=== PATIENT | male | born 1980 | race Two or more races ===

== ENCOUNTER 2018-04-16 16:26 | Inpatient (IN) | payer MEDICAID ==
[~2018-04-16] VITALS: Ht 175.3 cm; Wt 78.5 kg
[2018-04-16] MEDS ORDERED: Tetanus/Diptheria/Pertussis Vaccine 0.5ml Syr IM ONE (17:00)
[2018-04-16] MEDS ORDERED: Morphine Sulfate 4mg/ml Inj (IV USE ONLY) IVP ONE (17:00)
[2018-04-16] MEDS ORDERED: Cefepime HCl 1 GM in NS 55 ML IV SCH (17:00)
[2018-04-16] MEDS ORDERED: Bacitracin Oint UD TOPIC ONE (17:00)
[2018-04-16] MEDS ORDERED: Ketorolac 30mg Inj IV ONE (17:00)
[2018-04-16] MEDS ORDERED: Vancomycin 1 GM in NS 275 ML IV ONE (17:00)
[2018-04-16 18:14] LABS: BASOPHILS % (AUTO) 0.7 % (0.0-2.0); EOSINOPHILS % (AUTO) 0.4 % (0.0-3.0); HEMATOCRIT 44.3 % (42.0-52.0); HEMOGLOBIN 15.3 G/DL (14.2-18.0); MEAN CORPUSCULAR VOLUME 96 FL (80-99); MONOCYTES % (AUTO) 7.2 % (1.0-10.0); NEUTROPHILS % (AUTO) 79.7 % (45.0-75.0); PLATELET COUNT 212 K/UL (150-450); RED BLOOD COUNT 4.62 M/UL (4.70-6.10); RED CELL DISTRIBUTION WIDTH 10.3 % (11.6-14.8); WHITE BLOOD COUNT 11.8 K/UL (4.8-10.8)
[2018-04-16 18:25] LABS: ANION GAP 11 mmol/L (5-15); BLOOD UREA NITROGEN 13 mg/dL (7-18); CARBON DIOXIDE 22 MMOL/L (21-32); CHLORIDE 103 MMOL/L (98-107); CREATININE 0.9 MG/DL (0.55-1.30); POTASSIUM 3.6 MMOL/L (3.5-5.1); SODIUM 136 MMOL/L (136-145)
[2018-04-16 18:35] LABS: ALANINE AMINOTRANSFERASE 26 U/L (12-78); ALBUMIN 3.5 G/DL (3.4-5.0); ALBUMIN/GLOBULIN RATIO 0.9 (1.0-2.7); ALKALINE PHOSPHATASE 57 U/L (46-116); ASPARTATE AMINO TRANSFERASE 19 U/L (15-37); BILIRUBIN,TOTAL 1.1 MG/DL (0.2-1.0); CREATINE KINASE 112 U/L (26-308)
[2018-04-16 18:42] LABS: BILIRUBIN,DIRECT 0.2 MG/DL (0.0-0.3)
--- NOTE | 2018-04-16 19:03 | Emergency Room Report ---
History of Present Illness General Chief Complaint: Lower Extremity Injury Source: Patient Present Illness HPI Patient presents with 3-4 days of increasing pain in his right knee. 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 There is swelling there and severe pain at this time. He rates the pain 10/10 burning and stinging. He has difficulty bending his knee. He was seen 2 days ago and told that there was no problem. They told him to take Tylenol. He was seen by his doctor today and told that he had a severe infection and they might lose his leg and came to the hospital. His tetanus is greater than 10 years. He denies any calf swelling. There is no trauma aside from kneeling on the knee. No NVD, dysuria, chest pain, cough, neck pain, headache. 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 Reviewed Nursing Documentation: PMH: Agreed; PSxH: Agreed Nursing Documentation-PMH Past Medical History: No Stated History Review of Systems All Other Systems: negative except mentioned in HPI Physical Exam Vital Signs Date Time Temp Pulse Resp B/P (MAP) Pulse Ox O2 Delivery O2 Flow Rate FiO2 04/16/18 16:38 102.9 106 18 124/81 97 102.9 Sp02 EP Interpretation: reviewed, normal General Appearance: well appearing, no apparent distress, GCS 15, non-toxic Head: normocephalic Eyes: bilateral eye normal inspection, bilateral eye PERRL ENT: moist mucus membranes Neck: supple Respiratory: lungs clear, normal breath sounds Cardiovascular #1: regular rate, rhythm Cardiovascular #2: 2+ radial (R), 2+ dorsalis pedis (R) Gastrointestinal: normal inspection, normal bowel sounds, non tender, no mass, non-distended Musculoskeletal: back normal, no calf tenderness, decreased range of motion - R knee, Javier's Sign negative, inflammation, swelling, other - see skin, tender Neurologic: alert, oriented x3, grossly normal Psychiatric: mood/affect normal Skin: normal inspection, warm/dry, other - erythema of R knee extending below and laterally anteriorly Medical Decision Making Diagnostic Impression: Primary Impression: Cellulitis of right knee Additional Impression: Prepatellar bursitis Qualified Codes: M70.41 - Prepatellar bursitis, right knee ER Course Patient with knee pain, erythema. DDx: septic knee, prepatellar bursitis, cellulitis amongst others. Evaluation with BC, labs, xrays. Treatment with IV antibiotics and analgesia. Based on exam, suspicion for septic joint less. No evidence of DVT. Tetanus indicated. Labs with leukocytosis, normal ESR, elevated CRP. Patient with significant infection R knee. Needs admission for IV antibiotics. Pain improved as is ROM, however still limited. Laboratory Tests Test 04/16/18 17:45 04/16/18 20:45 White Blood Count 11.8 K/UL (4.8-10.8) H Red Blood Count 4.62 M/UL (4.70-6.10) L Hemoglobin 15.3 G/DL (14.2-18.0) Hematocrit 44.3 % (42.0-52.0) Mean Corpuscular Volume 96 FL (80-99) Mean Corpuscular Hemoglobin 33.1 PG (27.0-31.0) H Mean Corpuscular Hemoglobin Concent 34.6 G/DL (32.0-36.0) Red Cell Distribution Width 10.3 % (11.6-14.8) L Platelet Count 212 K/UL (150-450) Mean Platelet Volume 8.4 FL (6.5-10.1) Neutrophils (%) (Auto) 79.7 % (45.0-75.0) H Lymphocytes (%) (Auto) 12.0 % (20.0-45.0) L Monocytes (%) (Auto) 7.2 % (1.0-10.0) Eosinophils (%) (Auto) 0.4 % (0.0-3.0) Basophils (%) (Auto) 0.7 % (0.0-2.0) Erythrocyte Sedimentation Rate 14 MM/HR (0-15) Prothrombin Time 10.9 SEC (9.30-11.50) Prothrombin Time INR 1.0 (0.9-1.1) PTT 28 SEC (23-33) Sodium Level 136 MMOL/L (136-145) Potassium Level 3.6 MMOL/L (3.5-5.1) Chloride Level 103 MMOL/L (98-107) Carbon Dioxide Level 22 MMOL/L (21-32) Anion Gap 11 mmol/L (5-15) Blood Urea Nitrogen 13 mg/dL (7-18) Creatinine 0.9 MG/DL (0.55-1.30) Estimate Glomerular Filtration Rate > 60 mL/min (>60) Glucose Level 103 MG/DL (74-106) Lactic Acid Level 1.20 mmol/L (0.4-2.0) Uric Acid 3.5 MG/DL (2.6-7.2) Calcium Level 9.0 MG/DL (8.5-10.1) Total Bilirubin 1.1 MG/DL (0.2-1.0) H Direct Bilirubin 0.2 MG/DL (0.0-0.3) Aspartate Amino Transferase (AST) 19 U/L (15-37) Alanine Aminotransferase (ALT) 26 U/L (12-78) Alkaline Phosphatase 57 U/L (46-116) Total Creatine Kinase 112 U/L (26-308) Troponin I 0.000 ng/mL (0.000-0.056) C-Reactive Protein, Quantitative 6.4 mg/dL (0.00-0.90) H Total Protein 7.5 G/DL (6.4-8.2) Albumin 3.5 G/DL (3.4-5.0) Globulin 4.0 g/dL Albumin/Globulin Ratio 0.9 (1.0-2.7) L Anti-Nuclear Antibody Screen Pending Urine Color Yellow Urine Appearance Clear Urine pH 8 (4.5-8.0) Urine Specific [place] 1.010 (1.005-1.035) Urine Protein Negative (NEGATIVE) Urine Glucose (UA) Negative (NEGATIVE) Urine Ketones 1+ (NEGATIVE) H Urine Occult Blood Negative (NEGATIVE) Urine Nitrite Negative (NEGATIVE) Urine Bilirubin Negative (NEGATIVE) Urine Urobilinogen 1 MG/DL (0.0-1.0) H Urine Leukocyte Esterase Negative (NEGATIVE) Chest X-Ray Diagnostic Results Chest X-Ray Diagnostic Results : Chest X-Ray Ordered: Yes # of Views/Limited/Complete: 1 View Indication: Other EP Interpretation: Yes Interpretation: no consolidation, no effusion, no pneumothorax Impression: No acute disease Electronically Signed by: Reinier Downs MD Other X-Ray Diagnostic Results Other X-Ray Diagnostic Results : X-Ray ordered: R knee # of Views/Limited Vs Complete: 3 View Indication: Other EP Interpretation: Yes Interpretation: no dislocation, no soft tissue swelling, no fractures, other - no effusion Impression: No acute disease Electronically Signed by: Reinier Downs MD Last Vital Signs Date Time Temp Pulse Resp B/P (MAP) Pulse Ox O2 Delivery O2 Flow Rate FiO2 04/16/18 22:02 99.1 04/16/18 22:00 Room Air 04/16/18 19:44 88 16 98/49 95 Status: improved Disposition: ADMITTED INPATIENT Condition: Serious Scripts No Active Prescriptions or Reported Meds Referrals: [facility],REFERRING (PCP) Reinier Downs M.D. Apr 16, 2018 19:03
[2018-04-16 19:44] VITALS: BP 98/49
[2018-04-16] MEDS ORDERED: Morphine Sulfate 4mg/ml Inj (IV USE ONLY) IVP STA (20:00)
[2018-04-16 20:30] VITALS: BP 110/54
[2018-04-16] MEDS: Enoxaparin 40mg Inj SUBQ SCH (20:45)
[2018-04-16 21:15] LABS: APPEARANCE,URINE CLEAR; BILIRUBIN, URINE NEGATIVE (NEGATIVE); GLUCOSE, URINE (UA) NEGATIVE (NEGATIVE); KETONES,URINE 1+ (NEGATIVE); LEUKOCYTE ESTERASE ,URINE NEGATIVE (NEGATIVE); NITRITE,URINE NEGATIVE (NEGATIVE); PH,URINE 8 (4.5-8.0); PROTEIN,URINE NEGATIVE (NEGATIVE); UROBILINOGEN,URINE 1 MG/DL (0.0-1.0)
[2018-04-16 21:30] VITALS: BP 108/60
[2018-04-16 21:33] LABS: COLOR,URINE YELLOW
--- NOTE | 2018-04-16 22:55 | Infectious Diseases Prog Note ---
Assessment/Plan Problems: (1) Right knee pain Assessment & Plan: due to recent exertion and trauma , with soft tissue swelling, rule out septic knee joint, will order aspiration of the joint fluids and send for chemistry and culture, start vancomycin and cefepime empirically pending culture results. will screen for gout, RA, and SLE (2) Prepatellar bursitis Assessment & Plan: will start vancomycin and cefepime empirically , continue pain management (3) Cellulitis of right knee Assessment & Plan: continue antibiotics , avoid knee trauma and exertion Subjective Allergies: Coded Allergies: No Known Allergies (Unverified , 04/16/18) Objective Vital Signs Last 24 Hour Vital Signs Date Time Temp Pulse Resp B/P (MAP) Pulse Ox O2 Delivery O2 Flow Rate FiO2 04/16/18 21:04 99.1 04/16/18 21:03 99.1 04/16/18 19:44 103.3 88 16 98/49 95 Room Air 103.3 04/16/18 18:25 102.9 04/16/18 18:24 102.9 04/16/18 16:38 102.9 106 18 124/81 97 102.9 Height (Feet): 5 Height (Inches): 9.00 Weight (Pounds): 173 Laboratory Tests Test 04/16/18 17:45 04/16/18 20:45 White Blood Count 11.8 K/UL (4.8-10.8) H Red Blood Count 4.62 M/UL (4.70-6.10) L Hemoglobin 15.3 G/DL (14.2-18.0) Hematocrit 44.3 % (42.0-52.0) Mean Corpuscular Volume 96 FL (80-99) Mean Corpuscular Hemoglobin 33.1 PG (27.0-31.0) H Mean Corpuscular Hemoglobin Concent 34.6 G/DL (32.0-36.0) Red Cell Distribution Width 10.3 % (11.6-14.8) L Platelet Count 212 K/UL (150-450) Mean Platelet Volume 8.4 FL (6.5-10.1) Neutrophils (%) (Auto) 79.7 % (45.0-75.0) H Lymphocytes (%) (Auto) 12.0 % (20.0-45.0) L Monocytes (%) (Auto) 7.2 % (1.0-10.0) Eosinophils (%) (Auto) 0.4 % (0.0-3.0) Basophils (%) (Auto) 0.7 % (0.0-2.0) Erythrocyte Sedimentation Rate 14 MM/HR (0-15) Prothrombin Time 10.9 SEC (9.30-11.50) Prothromb Time International Ratio 1.0 (0.9-1.1) Activated Partial Thromboplast Time 28 SEC (23-33) Sodium Level 136 MMOL/L (136-145) Potassium Level 3.6 MMOL/L (3.5-5.1) Chloride Level 103 MMOL/L (98-107) Carbon Dioxide Level 22 MMOL/L (21-32) Anion Gap 11 mmol/L (5-15) Blood Urea Nitrogen 13 mg/dL (7-18) Creatinine 0.9 MG/DL (0.55-1.30) Estimat Glomerular Filtration Rate > 60 mL/min (>60) Glucose Level 103 MG/DL (74-106) Lactic Acid Level 1.20 mmol/L (0.4-2.0) Uric Acid 3.5 MG/DL (2.6-7.2) Calcium Level 9.0 MG/DL (8.5-10.1) Total Bilirubin 1.1 MG/DL (0.2-1.0) H Direct Bilirubin 0.2 MG/DL (0.0-0.3) Aspartate Amino Transf (AST/SGOT) 19 U/L (15-37) Alanine Aminotransferase (ALT/SGPT) 26 U/L (12-78) Alkaline Phosphatase 57 U/L (46-116) Total Creatine Kinase 112 U/L (26-308) Troponin I 0.000 ng/mL (0.000-0.056) C-Reactive Protein, Quantitative 6.4 mg/dL (0.00-0.90) H Total Protein 7.5 G/DL (6.4-8.2) Albumin 3.5 G/DL (3.4-5.0) Globulin 4.0 g/dL Albumin/Globulin Ratio 0.9 (1.0-2.7) L Anti-Nuclear Antibody Screen Pending Urine Color Yellow Urine Appearance Clear Urine pH 8 (4.5-8.0) Urine Specific [place] 1.010 (1.005-1.035) Urine Protein Negative (NEGATIVE) Urine Glucose (UA) Negative (NEGATIVE) Urine Ketones 1+ (NEGATIVE) H Urine Occult Blood Negative (NEGATIVE) Urine Nitrite Negative (NEGATIVE) Urine Bilirubin Negative (NEGATIVE) Urine Urobilinogen 1 MG/DL (0.0-1.0) H Urine Leukocyte Esterase Negative (NEGATIVE) Current Medications Medications (Trade) Dose Ordered Sig/Tiffany Route PRN Reason Start Time Stop Time Status Last Admin Dose Admin Acetaminophen (Tylenol) 650 mg Q4H PRN ORAL Mild Pain (Pain Scale 1-3) 04/16/18 19:45 05/16/18 19:44 Cefepime HCl 2 gm/ Dextrose 110 ml @ 220 mls/hr EVERY 12 HOURS IVPB 04/17/18 09:00 04/24/18 08:59 Dextrose (Dextrose 50%) 25 ml STAT PRN IV Hypoglycemia 04/16/18 19:45 05/16/18 19:44 Dextrose (Dextrose 50%) 50 ml STAT PRN IV Hypoglycemia 04/16/18 19:45 05/16/18 19:44 Diphenhydramine HCl (Benadryl) 25 mg Q6H PRN ORAL Itching/Pruritis 04/16/18 19:45 05/16/18 19:44 Enoxaparin Sodium (Lovenox) 40 mg Q24H SUBQ 04/16/18 20:45 05/16/18 20:44 Famotidine (Pepcid) 40 mg DAILY ORAL 04/17/18 09:00 05/17/18 08:59 Ondansetron HCl (Zofran) 4 mg Q6H PRN IVP Nausea & Vomiting 04/16/18 19:45 05/16/18 19:44 Sodium Chloride 1,000 ml @ 75 mls/hr [id number] IVLG 04/16/18 20:38 05/16/18 20:37 Vancomycin HCl (Vanco rx to dose) 1 ea DAILY PRN MISC Per rx protocol 04/16/18 21:00 05/16/18 20:59 Vancomycin/Sodium Chloride 250 ml @ 166.667 mls/hr Q8H IVPB 04/17/18 05:00 04/22/18 04:59 Taj De M.D. Apr 16, 2018 22:55
[2018-04-17] MEDS: Vancomycin 750mg/NS 250ml IVPB SCH ×3 (05:41→20:33)
[2018-04-17 07:30] LABS: BASOPHILS % (AUTO) 0.9 % (0.0-2.0); EOSINOPHILS % (AUTO) 1.1 % (0.0-3.0); HEMATOCRIT 41.3 % (42.0-52.0); HEMOGLOBIN 14.1 G/DL (14.2-18.0); LYMPHOCYTES % (AUTO) 16.2 % (20.0-45.0); MEAN CORPUSCULAR VOLUME 97 FL (80-99); MONOCYTES % (AUTO) 9.8 % (1.0-10.0); NEUTROPHILS % (AUTO) 72.1 % (45.0-75.0); PLATELET COUNT 193 K/UL (150-450); RED BLOOD COUNT 4.28 M/UL (4.70-6.10); RED CELL DISTRIBUTION WIDTH 10.6 % (11.6-14.8); WHITE BLOOD COUNT 11.7 K/UL (4.8-10.8)
[2018-04-17 07:52] LABS: ANION GAP 6 mmol/L (5-15); BLOOD UREA NITROGEN 17 mg/dL (7-18); CALCIUM 8.8 MG/DL (8.5-10.1); CARBON DIOXIDE 25 MMOL/L (21-32); CHLORIDE 108 MMOL/L (98-107); CREATININE 0.9 MG/DL (0.55-1.30); SODIUM 139 MMOL/L (136-145)
[2018-04-17] MEDS: Cefepime HCl 2 GM in D5W 110 ML IVPB SCH ×2 (08:27→20:33)
[2018-04-17] MEDS ORDERED: Morphine Sulfate 2mg/ml Inj(IV/IM USE ONLY) IVP SCH (08:30)
--- NOTE | 2018-04-17 10:28 | Diagnostic Imaging Report ---
Indication: Knee pain Technique: 3 views of the right knee Comparison: None Findings: No acute fractures. No dislocations. There is prepatellar soft tissue swelling. No suprapatellar effusion. Joint spaces are preserved. Impression: Negative
--- NOTE | 2018-04-17 10:30 | Diagnostic Imaging Report ---
Indication: Chest pain Technique: One view of the chest Comparison: none Findings: Lungs and pleural spaces are clear. Heart size is normal Impression: No acute process
--- NOTE | 2018-04-17 11:20 | Pre-Procedure Note/Attestation ---
Pre-Procedure Note/Attestation Complete Prior to Procedure Planned Procedure: right Procedure Narrative: US guided knee aspiration Indications for Procedure Pre-Operative Diagnosis: Cellulitis, possible septic arthritis Attestation I attest that I discussed the nature of the procedure; its benefits; risks and complications; and alternatives (and the risks and benefits of such alternatives ), prior to the procedure, with the patient (or the patient's legal sales development representative). I attest that, if there was a reasonable possibility of needing a blood transfusion, the patient (or the patient's legal sales development representative) was given the [facility] standardized written summary, pursuant to the [place] Blood Safety Act ([place] Health and Safety Code # 1645, as amended). I attest that I re-evaluated the patient just prior to the surgery and that there has been no change in the patient's H&P, except as documented below: Sheng Flowers MD Apr 17, 2018 11:20
--- NOTE | 2018-04-17 11:52 | Brief Operative Note ---
Immediate Post Operative Note Operative Note Pre-op Diagnosis: Cellulitis, possible septic arthritis Procedure: R Knee aspiration Post-op Diagnosis: same as pre-op Surgeon: Sayda FLOWERS Anesthesia: local Specimen: yes - about 3 ml yellow fluid Complications: none Condition: stable Fluids: none Drains: none Implant(s) used?: No Sheng Flowers MD Apr 17, 2018 11:52
--- NOTE | 2018-04-17 11:59 | Diagnostic Imaging Report ---
Indication: Painful swollen right knee Technique: Informed consent obtained prior to commencement of the procedure. Procedural timeout performed. Ultrasound used to localize the optimal puncture site. Sterile prepping and draping. Local anesthesia with 1% lidocaine. Just below the inferolateral aspect of the patella, a Yueh needle was inserted into the into the largest visualized joint fluid pocket. This was documented with ultrasound Approximately 2 mL of clear yellow fluid aspirated. Follow-up sonography demonstrates complete evacuation of the synovial fluid. The patient tolerated the procedure well, without immediate complication. Specimen was sent to the lab for microbial analysis. The patient tolerated the procedure well, without immediate complication. Comparison: none Findings: As above Impression: Successful right knee joint aspiration, yielding approximately 2 mL of clear yellow fluid.
[2018-04-17 12:00] VITALS: BP_SYST 106; BP_SYST 108; BP_DIAS 63; BP_DIAS 67
--- NOTE | 2018-04-17 12:28 | Infectious Diseases Prog Note ---
Assessment/Plan Problems: (1) Right knee pain Assessment & Plan: due to recent exertion and trauma , with soft tissue swelling, rule out septic knee joint, S/P aspiration of the right knee joint, await fluids chemistry and culture, continue vancomycin and cefepime empirically pending culture results. screening for gout, RA, and SLE is in progress (2) Prepatellar bursitis Assessment & Plan: continue NSAID for pain control and antibiotics empirically , knee rest, follow up with ortho (3) Cellulitis of right knee Assessment & Plan: continue antibiotics , avoid knee trauma and exertion Subjective Constitutional: Reports: fever, chills HEENT: Reports: no symptoms Respiratory: Reports: no symptoms Breasts: Reports: no symptoms Cardiovascular: Reports: no symptoms Gastrointestinal/Abdominal: Reports: no symptoms Genitourinary: Reports: no symptoms Neurologic: Reports: no symptoms Psychiatric: Reports: no symptoms Skin: Reports: other - RED AND WARM ON THE RIGHT KNEE AND UPPER LEG Endocrine: Reports: no symptoms Hematologic: Reports: no symptoms Musculoskeletal: Reports: pain, swelling, stiffness, other - with decreased ROM in the right knee Allergies: Coded Allergies: No Known Allergies (Unverified , 04/16/18) Objective Vital Signs Last 24 Hour Vital Signs Date Time Temp Pulse Resp B/P (MAP) Pulse Ox O2 Delivery O2 Flow Rate FiO2 04/17/18 12:11 100.5 04/17/18 09:00 Room Air 04/16/18 22:02 99.1 04/16/18 22:00 Room Air 04/16/18 21:35 99.1 87 16 108/60 98 Room Air 99.1 04/16/18 21:34 99.1 04/16/18 21:30 99.1 87 16 108/60 98 Room Air 99.1 04/16/18 21:04 99.1 04/16/18 21:03 99.1 04/16/18 20:30 103.1 90 16 110/54 97 Room Air 103.1 04/16/18 19:44 103.3 88 16 98/49 95 Room Air 103.3 04/16/18 18:25 102.9 04/16/18 18:24 102.9 04/16/18 16:38 102.9 106 18 124/81 97 102.9 Height (Feet): 5 Height (Inches): 9.00 Weight (Pounds): 173 General Appearance: WD/WN, no acute distress HEENT: normocephalic, atraumatic, anicteric, mucous membranes moist, PERRL, EOMI, pharynx normal, supple, no JVD Respiratory/Chest: chest wall non-tender, lungs clear, normal breath sounds, no respiratory distress, no accessory muscle use Cardiovascular: normal peripheral pulses, normal rate, regular rhythm, no gallop/murmur, no JVD Abdomen: normal bowel sounds, soft, non tender, no organomegaly, non distended , no mass, no scars Extremities: no cyanosis, no clubbing Skin: no rash, no lesions, no ulcers, other - red and warm on the right knee Neurologic/Psychiatric: alert, oriented x 3, responsive, normal mood/affect Lymphatic: no neck adenopathy, no groin adenopathy Musculoskeletal: other - right knee joint swelling with tenderness and decrease rang of motion Laboratory Tests Test 04/16/18 17:45 04/16/18 20:45 04/17/18 06:50 04/17/18 10:47 White Blood Count 11.8 K/UL (4.8-10.8) H 11.7 K/UL (4.8-10.8) H Red Blood Count 4.62 M/UL (4.70-6.10) L 4.28 M/UL (4.70-6.10) L Hemoglobin 15.3 G/DL (14.2-18.0) 14.1 G/DL (14.2-18.0) L Hematocrit 44.3 % (42.0-52.0) 41.3 % (42.0-52.0) L Mean Corpuscular Volume 96 FL (80-99) 97 FL (80-99) Mean Corpuscular Hemoglobin 33.1 PG (27.0-31.0) H 32.9 PG (27.0-31.0) H Mean Corpuscular Hemoglobin Concent 34.6 G/DL (32.0-36.0) 34.0 G/DL (32.0-36.0) Red Cell Distribution Width 10.3 % (11.6-14.8) L 10.6 % (11.6-14.8) L Platelet Count 212 K/UL (150-450) 193 K/UL (150-450) Mean Platelet Volume 8.4 FL (6.5-10.1) 8.3 FL (6.5-10.1) Neutrophils (%) (Auto) 79.7 % (45.0-75.0) H 72.1 % (45.0-75.0) Lymphocytes (%) (Auto) 12.0 % (20.0-45.0) L 16.2 % (20.0-45.0) L Monocytes (%) (Auto) 7.2 % (1.0-10.0) 9.8 % (1.0-10.0) Eosinophils (%) (Auto) 0.4 % (0.0-3.0) 1.1 % (0.0-3.0) Basophils (%) (Auto) 0.7 % (0.0-2.0) 0.9 % (0.0-2.0) Erythrocyte Sedimentation Rate 14 MM/HR (0-15) Prothrombin Time 10.9 SEC (9.30-11.50) Prothromb Time International Ratio 1.0 (0.9-1.1) Activated Partial Thromboplast Time 28 SEC (23-33) Sodium Level 136 MMOL/L (136-145) 139 MMOL/L (136-145) Potassium Level 3.6 MMOL/L (3.5-5.1) 4.0 MMOL/L (3.5-5.1) Chloride Level 103 MMOL/L (98-107) 108 MMOL/L (98-107) H Carbon Dioxide Level 22 MMOL/L (21-32) 25 MMOL/L (21-32) Anion Gap 11 mmol/L (5-15) 6 mmol/L (5-15) Blood Urea Nitrogen 13 mg/dL (7-18) 17 mg/dL (7-18) Creatinine 0.9 MG/DL (0.55-1.30) 0.9 MG/DL (0.55-1.30) Estimat Glomerular Filtration Rate > 60 mL/min (>60) > 60 mL/min (>60) Glucose Level 103 MG/DL (74-106) 101 MG/DL (74-106) Lactic Acid Level 1.20 mmol/L (0.4-2.0) Uric Acid 3.5 MG/DL (2.6-7.2) Calcium Level 9.0 MG/DL (8.5-10.1) 8.8 MG/DL (8.5-10.1) Total Bilirubin 1.1 MG/DL (0.2-1.0) H Direct Bilirubin 0.2 MG/DL (0.0-0.3) Aspartate Amino Transf (AST/SGOT) 19 U/L (15-37) Alanine Aminotransferase (ALT/SGPT) 26 U/L (12-78) Alkaline Phosphatase 57 U/L (46-116) Total Creatine Kinase 112 U/L (26-308) Troponin I 0.000 ng/mL (0.000-0.056) C-Reactive Protein, Quantitative 6.4 mg/dL (0.00-0.90) H Total Protein 7.5 G/DL (6.4-8.2) Albumin 3.5 G/DL (3.4-5.0) Globulin 4.0 g/dL Albumin/Globulin Ratio 0.9 (1.0-2.7) L Anti-Nuclear Antibody Screen Pending Urine Color Yellow Urine Appearance Clear Urine pH 8 (4.5-8.0) Urine Specific [place] 1.010 (1.005-1.035) Urine Protein Negative (NEGATIVE) Urine Glucose (UA) Negative (NEGATIVE) Urine Ketones 1+ (NEGATIVE) H Urine Occult Blood Negative (NEGATIVE) Urine Nitrite Negative (NEGATIVE) Urine Bilirubin Negative (NEGATIVE) Urine Urobilinogen 1 MG/DL (0.0-1.0) H Urine Leukocyte Esterase Negative (NEGATIVE) Body Fluid Source Pending Body Fluid Volume Pending Body Fluid Appearance Pending Body Fluid RBC Pending Body Fluid Total Nucleated Cells Pending Body Fluid Polynuclear WBCs (%) Pending Body Fluid Mononuclear WBCs (%) Pending Body Fluid Mesothelial Cells (%) Pending Current Medications Medications (Trade) Dose Ordered Sig/Tiffany Route PRN Reason Start Time Stop Time Status Last Admin Dose Admin Acetaminophen (Tylenol) 650 mg Q4H PRN ORAL Mild Pain (Pain Scale 1-3) 04/16/18 19:45 05/16/18 19:44 04/17/18 12:11 Cefepime HCl 2 gm/ Dextrose 110 ml @ 220 mls/hr EVERY 12 HOURS IVPB 04/17/18 09:00 04/24/18 08:59 04/17/18 08:27 Dextrose (Dextrose 50%) 25 ml STAT PRN IV Hypoglycemia 04/16/18 19:45 05/16/18 19:44 Dextrose (Dextrose 50%) 50 ml STAT PRN IV Hypoglycemia 04/16/18 19:45 05/16/18 19:44 Diphenhydramine HCl (Benadryl) 25 mg Q6H PRN ORAL Itching/Pruritis 04/16/18 19:45 05/16/18 19:44 Enoxaparin Sodium (Lovenox) 40 mg Q24H SUBQ 04/16/18 20:45 05/16/18 20:44 Famotidine (Pepcid) 40 mg DAILY ORAL 04/17/18 09:00 05/17/18 08:59 04/17/18 08:26 Ondansetron HCl (Zofran) 4 mg Q6H PRN IVP Nausea & Vomiting 04/16/18 19:45 05/16/18 19:44 Sodium Chloride 1,000 ml @ 75 mls/hr [id number] IVLG 04/16/18 20:38 05/16/18 20:37 04/17/18 08:27 Tramadol HCl (Ultram) 50 mg Q6H PRN ORAL Severe Pain (Pain Scale 7-10) 04/17/18 09:15 04/24/18 09:14 Vancomycin HCl (Vanco rx to dose) 1 ea DAILY PRN MISC Per rx protocol 04/16/18 21:00 05/16/18 20:59 Vancomycin/Sodium Chloride 250 ml @ 166.667 mls/hr Q8H IVPB 04/17/18 05:00 04/22/18 04:59 04/17/18 12:10 Taj De M.D. Apr 17, 2018 12:28
[2018-04-17 16:00] VITALS: BP 98/64
--- NOTE | 2018-04-17 16:30 | History and Physical Report ---
DATE OF ADMISSION: 04/16/2018 REASON FOR ADMISSION: 1. Right knee pain. 2. Right knee infection. 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 It then started to get a little red and warm to touch. As such, he presented himself to the emergency room for further evaluation and care. IV antibiotics were initiated. His last tetanus shot was over 10 years ago. He denies any chest pain or shortness of breath. Feels better since the initiation of antibiotics. PAST MEDICAL HISTORY: None. ALLERGIES: No known drug allergies. SOCIAL HISTORY: Denies any current alcohol or illicit drug use. Occasional tobacco. FAMILY HISTORY: Noncontributory. PHYSICAL EXAMINATION: VITAL SIGNS: Blood pressure 108/60, respiratory rate 16, pulse 87, and temperature 99.1. GENERAL: The patient is awake, alert, and in no distress. HEENT: Extraocular muscles intact. No lymphadenopathy noted. CARDIOVASCULAR: S1, S2. No rubs or gallops. PULMONARY: Clear to auscultation bilaterally. No rales, rhonchi, or wheezes. ABDOMEN: Nondistended and nontender. EXTREMITY: No lower extremity edema. Right knee is warm to touch with noted effusion. LABORATORY DATA: Labs dated 04/17/2018, sodium 139, potassium 4, BUN 17, creatinine 0.9, and calcium 8.8. Hemoglobin 14.1, white cell count 11.7, and platelet count 193,000. ASSESSMENT AND PLAN: 1. Right knee effusion/infection. At this time, intravenous antibiotics have been initiated. Appreciate Dr. De, Infectious Disease to manage. Imaging of his right knee is still pending. Orthopedics to evaluate the necessity of drainage. Once cleared by Infectious Disease and Orthopedics, the patient will be discharged hopefully tomorrow or Saturday on p.o. antibiotics. At this time, we will avoid any narcotic use for his right knee pain. We will minimize by using Ultram. 2. DVT prophylaxis with Lovenox. No calf tenderness currently. No asymmetrical edema noted in either leg other than right knee effusion. 3. Gastrointestinal prophylaxis. The patient is on Pepcid. 4. Mild volume depletion. Continue IV fluids. Mikey Luna MD DR: DELL JOB#: [id number] CC:
--- NOTE | 2018-04-17 17:30 | Consultation ---
DATE OF CONSULTATION: 04/17/2018 INFECTIOUS DISEASE CONSULTATION CONSULTING PHYSICIAN: Taj De M.D. REQUESTING PHYSICIAN: Mikey Luna M.D. REASON FOR CONSULTATION: Right knee swelling, pain and cellulitis with possible septic joint. 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 The patient also will be stepping on nails, but without any skin break that happened before his symptoms started with pain first, then swelling of the right knee and redness and this progressed to the point that he was unable to bend his knee or walk. The patient also developed fever and chills and he was found to be febrile with temperature of 102.9 degrees in the emergency room after he was brought in for evaluation. The patient was given dose of vancomycin and cefepime in the emergency room and was admitted to the hospital for antibiotics treatment and further evaluation of his right knee and an Infectious Disease consult was requested for antibiotics treatment and further evaluation. PAST MEDICAL HISTORY: Negative. PAST SURGICAL HISTORY: Negative. ALLERGIES: No known drug allergy. MEDICATIONS: He received vancomycin and cefepime 1 dose in the emergency room. For the rest of his medications, please refer to [facility]. SOCIAL HISTORY: The patient smokes on and off half packet per day for a couple of years. Denied using any drugs or alcohol. FAMILY HISTORY: Positive for diabetes. Negative for recurrent infection or immunocompromised condition. REVIEW OF SYSTEMS: A 14-point of system reviewed were all negative apart from the one I mentioned above in my History and Physical. PHYSICAL EXAMINATION: GENERAL: Young male, lying in bed, complaining of pain and swelling of his right knee and fever, not in acute distress. VITAL SIGNS: Temperature 99.1 degrees, pulse 87, respirations 16, blood pressure 108/60 and saturation 98% on room air. HEENT: Normocephalic and atraumatic. Pupils are reactive to light equally. Moist oral mucosa. No exudate or thrush. NECK: Supple. No lymphadenopathy. CARDIOVASCULAR: Regular rate and rhythm. No murmur or gallop. LUNGS: Clear bilaterally. No wheezing or rhonchi. Normal breathing effort. ABDOMEN: Soft, nontender, nondistended. Normal bowel sounds. No hepatosplenomegaly or ascites. EXTREMITY: He had right knee swelling, edema extent to the suprapatellar area and to the lower leg with skin redness and local tenderness to palpation of the knee and the patella and significant decreased range of motion of the right knee joint. SKIN: No rash. No hives. No ulceration. LABORATORY AND DIAGNOSTIC DATA: White count of 11.8, hemoglobin of 15.3, and platelet count of 212. BUN of 13 and creatinine of 0.9. Urinalysis was negative for nitrate, negative for leukocyte esterase, and +1 urobilinogen. Imaging, right knee x-ray was negative for any fracture or dislocation, but positive for prepatellar soft tissue swelling. Chest x-ray showed no acute process. ASSESSMENT AND PLAN: 1. Right knee pain with swelling due to recent exertion and trauma, need to rule out septic knee joint with fever and significant pain. We will order aspiration of the right knee joint and fluid to be sent for chemistry analysis and culture including bacterial and fungal. We will start vancomycin and cefepime empiric coverage pending culture results. We will screen the patient for gout, rheumatoid arthritis and SLE. 2. Prepatellar bursitis. The patient will be on antibiotics empiric coverage anyway with vancomycin and cefepime. We will continue pain management as needed. May need orthopedic evaluation and followup. 3. Cellulitis of the right knee and leg. The patient already on vancomycin and cefepime. Avoid any trauma and exertion. Keep leg elevated all the time in bed. Thank you for the consult. ID will continue to follow. Taj De M.D. DR: HERLINDA JOB#: [id number] CC:
[2018-04-17] MEDS: traMADol 50mg tab ORAL PRN (18:45)
[2018-04-17 20:00] VITALS: BP 119/68
[2018-04-17] MEDS: Enoxaparin 40mg Inj SUBQ SCH (20:37)
[2018-04-18] VITALS: BP 117/64
[2018-04-18 04:00] VITALS: BP 118/68
[2018-04-18] MEDS: Vancomycin 1gm/D5W 275ml IVPB SCH ×6 (04:16→21:41)
[2018-04-18 07:32] LABS: BASOPHILS % (AUTO) 0.7 % (0.0-2.0); EOSINOPHILS % (AUTO) 1.7 % (0.0-3.0); HEMATOCRIT 43.4 % (42.0-52.0); HEMOGLOBIN 14.8 G/DL (14.2-18.0); MEAN CORPUSCULAR VOLUME 96 FL (80-99); MONOCYTES % (AUTO) 8.9 % (1.0-10.0); NEUTROPHILS % (AUTO) 68.7 % (45.0-75.0); PLATELET COUNT 206 K/UL (150-450); RED BLOOD COUNT 4.54 M/UL (4.70-6.10); RED CELL DISTRIBUTION WIDTH 10.1 % (11.6-14.8); WHITE BLOOD COUNT 11.8 K/UL (4.8-10.8)
[2018-04-18 07:57] LABS: ANION GAP 6 mmol/L (5-15); BLOOD UREA NITROGEN 9 mg/dL (7-18); CALCIUM 8.9 MG/DL (8.5-10.1); CARBON DIOXIDE 25 MMOL/L (21-32); CHLORIDE 106 MMOL/L (98-107); CREATININE 0.9 MG/DL (0.55-1.30); POTASSIUM 3.9 MMOL/L (3.5-5.1); SODIUM 136 MMOL/L (136-145)
[2018-04-18 08:00] VITALS: BP 119/70
[2018-04-18] MEDS: Cefepime HCl 2 GM in D5W 110 ML IVPB SCH ×2 (08:39→21:42)
[2018-04-18] MEDS: traMADol 50mg tab ORAL PRN (08:39)
--- NOTE | 2018-04-18 08:50 | Nephrology Progress Note ---
Assessment/Plan Assessment/Plan A/P 1. Right Knee Edema - r/o septic joint - On Abx and improving. Fluid aspiration results noted ( No crystals, Cx pending ) - Appreciate Ortho input - US Right leg r/o DVT - Plan for DC adelina if cleared by ID on Oral Abx and patient improving 2. DVT Prophylaxis- Lovenox sq Subjective Date patient seen: Apr 18, 2018 Time patient seen: 08:46 ROS Limited/Unobtainable: No Allergies: Coded Allergies: No Known Allergies (Unverified , 04/16/18) All Systems: reviewed and negative except above Subjective Right knee pain improving Objective Last 24 Hour Vital Signs Date Time Temp Pulse Resp B/P (MAP) Pulse Ox O2 Delivery O2 Flow Rate FiO2 04/18/18 05:14 98.0 04/18/18 04:15 98.0 04/18/18 04:00 98.0 90 19 118/68 (85) 100 98.0 04/18/18 00:00 98.0 90 18 117/64 (81) 98 98.0 04/17/18 21:00 Room Air 04/17/18 20:33 100.1 04/17/18 20:00 100.5 91 19 119/68 (85) 98 100.5 04/17/18 19:44 98.3 04/17/18 18:45 98.3 04/17/18 16:00 98.3 88 18 98/64 (75) 100 98.3 04/17/18 12:11 100.5 04/17/18 12:00 99.0 95 19 108/67 (81) 100 99.0 04/17/18 12:00 100.5 93 18 106/63 (77) 100 100.5 04/17/18 09:00 Room Air Laboratory Tests 04/17/18 10:47: Body Fluid Source Right knee fluid, Body Fluid Volume 0.5, Body Fluid Appearance Yellow/sl. turbid, Body Fluid RBC 1745, Body Fluid Total Nucleated Cells 153, Body Fluid Polynuclear WBCs (%) 86, Body Fluid Mononuclear WBCs (%) 14, Body Fluid Mesothelial Cells (%) 0, Body Fluid Comment 04/17/18 20:05: Vancomycin Level Trough 4.2L 04/18/18 06:50: White Blood Count 11.8H, Red Blood Count 4.54L, Hemoglobin 14.8, Hematocrit 43.4 , Mean Corpuscular Volume 96, Mean Corpuscular Hemoglobin 32.6H, Mean Corpuscular Hemoglobin Concent 34.1, Red Cell Distribution Width 10.1L, Platelet Count 206, Mean Platelet Volume 7.7, Neutrophils (%) (Auto) 68.7, Lymphocytes (%) (Auto) 20.0, Monocytes (%) (Auto) 8.9, Eosinophils (%) (Auto) 1.7, Basophils (%) (Auto) 0.7, Sodium Level 136, Potassium Level 3.9, Chloride Level 106, Carbon Dioxide Level 25, Anion Gap 6, Blood Urea Nitrogen 9, Creatinine 0.9, Estimat Glomerular Filtration Rate > 60, Glucose Level 91, Calcium Level 8.9 Height (Feet): 5 Height (Inches): 9.00 Weight (Pounds): 173 General Appearance: WD/WN EENT: PERRL/EOMI Neck: non-tender, normal alignment Cardiovascular: normal rate, regular rhythm Respiratory/Chest: lungs clear, normal breath sounds Abdomen: non tender, soft, no organomegaly Edema: no edema noted Arm (L), no edema noted Arm (R), no edema noted Leg (L), no edema noted Leg (R), no edema noted Pedal (L), no edema noted Pedal (R), no edema noted Generalized Mikey Luna M.D. Apr 18, 2018 08:50
[2018-04-18] MEDS: Naproxen 500mg tab ORAL SCH ×2 (10:16→17:55)
[2018-04-18 12:00] VITALS: BP 108/75
[2018-04-18 16:00] VITALS: BP 118/72
--- NOTE | 2018-04-18 16:37 | Infectious Diseases Prog Note ---
Assessment/Plan Problems: (1) Right knee pain Assessment & Plan: due to recent exertion and trauma , with soft tissue swelling, suspect septic bursitis with negative right knee joint fluids for infection , S/P aspiration of the right knee joint, with no evidence of crystals . await fluids culture, continue vancomycin and cefepime empirically pending culture results. screening for gout, RA, and SLE is in progress (2) Prepatellar bursitis Assessment & Plan: continue NSAID for pain control and antibiotics empirically , knee rest, follow up with ortho (3) Cellulitis of right knee Assessment & Plan: continue antibiotics , avoid knee trauma and exertion Subjective Constitutional: Reports: no symptoms HEENT: Reports: no symptoms Respiratory: Reports: no symptoms Breasts: Reports: no symptoms Cardiovascular: Reports: no symptoms Gastrointestinal/Abdominal: Reports: no symptoms Genitourinary: Reports: no symptoms Neurologic: Reports: no symptoms Psychiatric: Reports: no symptoms Skin: Reports: no symptoms Endocrine: Reports: no symptoms Hematologic: Reports: no symptoms Musculoskeletal: Reports: pain, swelling, stiffness, other - of the right knee Allergies: Coded Allergies: No Known Allergies (Unverified , 04/16/18) Objective Vital Signs Last 24 Hour Vital Signs Date Time Temp Pulse Resp B/P (MAP) Pulse Ox O2 Delivery O2 Flow Rate FiO2 04/18/18 12:00 99.5 91 20 108/75 (86) 97 99.5 04/18/18 09:00 Room Air 04/18/18 08:00 97.7 88 20 119/70 (86) 99 97.7 04/18/18 05:14 98.0 04/18/18 04:15 98.0 04/18/18 04:00 98.0 90 19 118/68 (85) 100 98.0 04/18/18 00:00 98.0 90 18 117/64 (81) 98 98.0 04/17/18 21:00 Room Air 04/17/18 20:33 100.1 04/17/18 20:00 100.5 91 19 119/68 (85) 98 100.5 04/17/18 19:44 98.3 04/17/18 18:45 98.3 Height (Feet): 5 Height (Inches): 9.00 Weight (Pounds): 173 General Appearance: WD/WN, no acute distress HEENT: normocephalic, atraumatic, anicteric, PERRL, EOMI, pharynx normal, supple, no JVD Respiratory/Chest: chest wall non-tender, lungs clear, normal breath sounds, no respiratory distress, no accessory muscle use Cardiovascular: normal peripheral pulses, normal rate, regular rhythm, no gallop/murmur, no JVD Abdomen: normal bowel sounds, soft, non tender, no organomegaly, non distended , no mass, no scars Genitourinary: normal external genitalia Extremities: no cyanosis, no clubbing Skin: no rash, no lesions, no ulcers Neurologic/Psychiatric: alert, oriented x 3, responsive Lymphatic: no neck adenopathy, no groin adenopathy Musculoskeletal: other - right suprapatella swelling with tenderness and decreased range of motion Microbiology Date/Time Source Procedure Growth Status 04/16/18 18:00 Blood Blood Culture - Preliminary NO GROWTH AFTER 24 HOURS Resulted 04/16/18 17:45 Blood Blood Culture - Preliminary NO GROWTH AFTER 24 HOURS Resulted 04/17/18 10:47 Synovial Fluid Gram Stain - Final Resulted 04/17/18 10:47 Synovial Fluid Body Fluid Culture - Preliminary NO GROWTH AFTER 24 HOURS Resulted Laboratory Tests Test 04/17/18 20:05 04/18/18 06:50 Vancomycin Level Trough 4.2 ug/mL (5.0-12.0) L White Blood Count 11.8 K/UL (4.8-10.8) H Red Blood Count 4.54 M/UL (4.70-6.10) L Hemoglobin 14.8 G/DL (14.2-18.0) Hematocrit 43.4 % (42.0-52.0) Mean Corpuscular Volume 96 FL (80-99) Mean Corpuscular Hemoglobin 32.6 PG (27.0-31.0) H Mean Corpuscular Hemoglobin Concent 34.1 G/DL (32.0-36.0) Red Cell Distribution Width 10.1 % (11.6-14.8) L Platelet Count 206 K/UL (150-450) Mean Platelet Volume 7.7 FL (6.5-10.1) Neutrophils (%) (Auto) 68.7 % (45.0-75.0) Lymphocytes (%) (Auto) 20.0 % (20.0-45.0) Monocytes (%) (Auto) 8.9 % (1.0-10.0) Eosinophils (%) (Auto) 1.7 % (0.0-3.0) Basophils (%) (Auto) 0.7 % (0.0-2.0) Sodium Level 136 MMOL/L (136-145) Potassium Level 3.9 MMOL/L (3.5-5.1) Chloride Level 106 MMOL/L (98-107) Carbon Dioxide Level 25 MMOL/L (21-32) Anion Gap 6 mmol/L (5-15) Blood Urea Nitrogen 9 mg/dL (7-18) Creatinine 0.9 MG/DL (0.55-1.30) Estimat Glomerular Filtration Rate > 60 mL/min (>60) Glucose Level 91 MG/DL (74-106) Calcium Level 8.9 MG/DL (8.5-10.1) Current Medications Medications (Trade) Dose Ordered Sig/Tiffany Route PRN Reason Start Time Stop Time Status Last Admin Dose Admin Acetaminophen (Tylenol) 650 mg Q4H PRN ORAL Fever/Headache/Mild Pain 04/17/18 15:45 05/16/18 19:44 04/18/18 04:15 Cefepime HCl 2 gm/ Dextrose 110 ml @ 220 mls/hr EVERY 12 HOURS IVPB 04/17/18 09:00 04/24/18 08:59 04/18/18 08:39 Dextrose (Dextrose 50%) 25 ml STAT PRN IV Hypoglycemia 04/16/18 19:45 05/16/18 19:44 Dextrose (Dextrose 50%) 50 ml STAT PRN IV Hypoglycemia 04/16/18 19:45 05/16/18 19:44 Diphenhydramine HCl (Benadryl) 25 mg Q6H PRN ORAL Itching/Pruritis 04/16/18 19:45 05/16/18 19:44 Enoxaparin Sodium (Lovenox) 40 mg Q24H SUBQ 04/16/18 20:45 05/16/18 20:44 04/17/18 20:37 Famotidine (Pepcid) 40 mg DAILY ORAL 04/17/18 09:00 05/17/18 08:59 04/18/18 08:39 Naproxen (Naprosyn) 500 mg TWICE A DAY ORAL 04/18/18 09:00 05/18/18 08:59 04/18/18 10:16 Ondansetron HCl (Zofran) 4 mg Q6H PRN IVP Nausea & Vomiting 04/16/18 19:45 05/16/18 19:44 Sodium Chloride 1,000 ml @ 75 mls/hr [id number] IVLG 04/16/18 20:38 05/16/18 20:37 04/18/18 13:49 Vancomycin HCl (Vanco rx to dose) 1 ea DAILY PRN MISC Per rx protocol 04/16/18 21:00 05/16/18 20:59 Vancomycin HCl 1 gm/Dextrose 275 ml @ 183.708 mls/hr Q8H IVPB 04/18/18 05:00 04/23/18 04:59 04/18/18 13:50 Taj De M.D. Apr 18, 2018 16:37
--- NOTE | 2018-04-18 16:43 | Diagnostic Imaging Report ---
APPROVED REPORT CPT Code: 49464 Present Symptoms Lower Extremity Pain: Right BILATERAL: Imaging reveals a patent deep venous system bilaterally. There is no evidence of thrombus within the femoral, popliteal or tibial segments. The greater saphenous veins are also within normal limits. Doppler indicates normal spontaneous flow within these segments.
[2018-04-18 20:00] VITALS: BP 109/63
[2018-04-18] MEDS: Enoxaparin 40mg Inj SUBQ SCH (21:43)
[2018-04-19 00:17] VITALS: BP 109/56
[2018-04-19 04:24] VITALS: BP 102/64
[2018-04-19 05:04] LABS: BASOPHILS % (AUTO) 0.6 % (0.0-2.0); EOSINOPHILS % (AUTO) 3.4 % (0.0-3.0); HEMOGLOBIN 14.1 G/DL (14.2-18.0); LYMPHOCYTES % (AUTO) 14.3 % (20.0-45.0); MEAN CORPUSCULAR VOLUME 95 FL (80-99); MONOCYTES % (AUTO) 10.5 % (1.0-10.0); NEUTROPHILS % (AUTO) 71.2 % (45.0-75.0); PLATELET COUNT 212 K/UL (150-450); RED BLOOD COUNT 4.12 M/UL (4.70-6.10); WHITE BLOOD COUNT 10.7 K/UL (4.8-10.8)
[2018-04-19 05:10] LABS: ANION GAP 6 mmol/L (5-15); BLOOD UREA NITROGEN 16 mg/dL (7-18); CALCIUM 8.9 MG/DL (8.5-10.1); CARBON DIOXIDE 25 MMOL/L (21-32); CHLORIDE 107 MMOL/L (98-107); CREATININE 0.9 MG/DL (0.55-1.30); POTASSIUM 3.5 MMOL/L (3.5-5.1); SODIUM 138 MMOL/L (136-145)
[2018-04-19] MEDS: Vancomycin 1gm/D5W 275ml IVPB SCH ×2 (05:51)
[2018-04-19 08:00] VITALS: BP 110/67
[2018-04-19] MEDS: Cefepime HCl 2 GM in D5W 110 ML IVPB SCH (08:26)
[2018-04-19] MEDS: Naproxen 500mg tab ORAL SCH ×2 (08:27→19:13)
--- NOTE | 2018-04-19 10:08 | Nephrology Progress Note ---
Assessment/Plan Assessment/Plan A/P 1. Right Knee Edema - septic bursitis, improving on Abx - On Abx and improving. Fluid aspiration results noted ( No crystals, Cx pending ) - Appreciate Ortho input - US Right leg r/o DVT - Plan for DC today with HH or Rehab 2. DVT Prophylaxis- Lovenox sq Await for ID final Abx orders Subjective Date patient seen: Apr 19, 2018 Time patient seen: 10:04 ROS Limited/Unobtainable: Yes Allergies: Coded Allergies: No Known Allergies (Unverified , 04/16/18) Subjective Right knee pain improving, but still sore Objective Last 24 Hour Vital Signs Date Time Temp Pulse Resp B/P (MAP) Pulse Ox O2 Delivery O2 Flow Rate FiO2 04/19/18 08:27 99.0 04/19/18 04:24 99.0 91 18 102/64 (77) 96 99.0 04/19/18 00:17 98.3 79 18 109/56 (73) 98 98.3 04/18/18 21:00 Room Air 04/18/18 20:00 99.9 82 18 109/63 (78) 99 99.9 04/18/18 19:21 101.1 04/18/18 18:54 100.8 04/18/18 18:22 100.8 04/18/18 16:00 98.3 70 20 118/72 (87) 100 98.3 04/18/18 12:00 99.5 91 20 108/75 (86) 97 99.5 Intake and Output 04/18/18 04/19/18 19:00 07:00 Intake Total 685.000 ml 840 ml Output Total 400 ml Balance 685.000 ml 440 ml Intake Oral 240 ml IV Total 685.000 ml 600 ml Output Urine Total 400 ml Laboratory Tests 04/19/18 04:00: White Blood Count 10.7, Red Blood Count 4.12L, Hemoglobin 14.1L, Hematocrit 39.0L, Mean Corpuscular Volume 95, Mean Corpuscular Hemoglobin 34.3H, Mean Corpuscular Hemoglobin Concent 36.2H, Red Cell Distribution Width 10.0L, Platelet Count 212, Mean Platelet Volume 7.8, Neutrophils (%) (Auto) 71.2, Lymphocytes (%) (Auto) 14.3L, Monocytes (%) (Auto) 10.5H, Eosinophils (%) (Auto ) 3.4H, Basophils (%) (Auto) 0.6, Sodium Level 138, Potassium Level 3.5, Chloride Level 107, Carbon Dioxide Level 25, Anion Gap 6, Blood Urea Nitrogen 16 , Creatinine 0.9, Estimat Glomerular Filtration Rate > 60, Glucose Level 101, Calcium Level 8.9, Vancomycin Level Trough 11.0 Height (Feet): 5 Height (Inches): 9.00 Weight (Pounds): 173 General Appearance: WD/WN, no apparent distress EENT: PERRL/EOMI Cardiovascular: normal rate, regular rhythm Respiratory/Chest: lungs clear, normal breath sounds Abdomen: non tender, soft Edema: 1+ Leg (R) Mikey Luna M.D. Apr 19, 2018 10:08
[2018-04-19] MEDS: Vancomycin 1250mg/D5W 250ml IVPB SCH ×2 (11:57→20:00)
[2018-04-19 12:40] VITALS: BP 125/79
[2018-04-19 16:00] VITALS: BP 109/70
[2018-04-19 20:00] VITALS: BP 107/66
--- NOTE | 2018-04-19 20:13 | Infectious Diseases Prog Note ---
Assessment/Plan Problems: (1) Right knee pain Assessment & Plan: due to recent exertion and trauma , with soft tissue swelling, suspect septic bursitis with negative right knee joint fluids for infection , S/P aspiration of the right knee joint, with no evidence of crystals . knee fluids culture is negative so far , continue vancomycin and switch to unasyn empirically pending culture results. screening for gout, RA, is in progress, SADIA is negative (2) Prepatellar bursitis Assessment & Plan: not improving with pain management and antibiotics empirically , he will need I&D as per discussion with ortho, he will need to go to a hospital contracted with his insurance for his I&D , D/W ortho and the primary (3) Cellulitis of right knee Assessment & Plan: continue antibiotics , avoid knee trauma and exertion Subjective Constitutional: Reports: fever HEENT: Reports: no symptoms Respiratory: Reports: no symptoms Breasts: Reports: no symptoms Cardiovascular: Reports: no symptoms Gastrointestinal/Abdominal: Reports: no symptoms Genitourinary: Reports: no symptoms Neurologic: Reports: no symptoms Psychiatric: Reports: no symptoms Skin: Reports: no symptoms Endocrine: Reports: no symptoms Hematologic: Reports: no symptoms Musculoskeletal: Reports: pain, swelling, stiffness - with decreased range of motion in the right knee Allergies: Coded Allergies: No Known Allergies (Unverified , 04/16/18) Objective Vital Signs Last 24 Hour Vital Signs Date Time Temp Pulse Resp B/P (MAP) Pulse Ox O2 Delivery O2 Flow Rate FiO2 04/19/18 19:13 101.5 04/19/18 17:22 99.0 04/19/18 16:23 101.5 04/19/18 16:00 100.5 92 20 109/70 (83) 98 100.5 04/19/18 12:40 97.6 86 18 125/79 (94) 97 97.6 04/19/18 09:26 99.0 04/19/18 09:00 Room Air 04/19/18 08:27 99.0 04/19/18 08:00 98.3 87 18 110/67 (81) 98 98.3 04/19/18 04:24 99.0 91 18 102/64 (77) 96 99.0 04/19/18 00:17 98.3 79 18 109/56 (73) 98 98.3 04/18/18 21:00 Room Air Height (Feet): 5 Height (Inches): 9.00 Weight (Pounds): 173 General Appearance: WD/WN, no acute distress HEENT: normocephalic, atraumatic, anicteric, mucous membranes moist, PERRL Respiratory/Chest: chest wall non-tender, lungs clear, normal breath sounds, no respiratory distress, no accessory muscle use Breasts: no masses Cardiovascular: normal peripheral pulses, normal rate, regular rhythm, no gallop/murmur, no JVD Abdomen: normal bowel sounds, soft, non tender, no organomegaly, non distended , no mass, no scars Genitourinary: normal external genitalia Extremities: no cyanosis, no clubbing Skin: no rash, no lesions, no ulcers Neurologic/Psychiatric: alert, oriented x 3, responsive Lymphatic: no neck adenopathy, no groin adenopathy Musculoskeletal: other - right knee swelling above the patella with decreased range of motion Microbiology Date/Time Source Procedure Growth Status 04/17/18 10:47 Synovial Fluid Gram Stain - Final Resulted 04/17/18 10:47 Synovial Fluid Body Fluid Culture - Preliminary NO GROWTH AFTER 48 HOURS Resulted Laboratory Tests Test 04/19/18 04:00 White Blood Count 10.7 K/UL (4.8-10.8) Red Blood Count 4.12 M/UL (4.70-6.10) L Hemoglobin 14.1 G/DL (14.2-18.0) L Hematocrit 39.0 % (42.0-52.0) L Mean Corpuscular Volume 95 FL (80-99) Mean Corpuscular Hemoglobin 34.3 PG (27.0-31.0) H Mean Corpuscular Hemoglobin Concent 36.2 G/DL (32.0-36.0) H Red Cell Distribution Width 10.0 % (11.6-14.8) L Platelet Count 212 K/UL (150-450) Mean Platelet Volume 7.8 FL (6.5-10.1) Neutrophils (%) (Auto) 71.2 % (45.0-75.0) Lymphocytes (%) (Auto) 14.3 % (20.0-45.0) L Monocytes (%) (Auto) 10.5 % (1.0-10.0) H Eosinophils (%) (Auto) 3.4 % (0.0-3.0) H Basophils (%) (Auto) 0.6 % (0.0-2.0) Sodium Level 138 MMOL/L (136-145) Potassium Level 3.5 MMOL/L (3.5-5.1) Chloride Level 107 MMOL/L (98-107) Carbon Dioxide Level 25 MMOL/L (21-32) Anion Gap 6 mmol/L (5-15) Blood Urea Nitrogen 16 mg/dL (7-18) Creatinine 0.9 MG/DL (0.55-1.30) Estimat Glomerular Filtration Rate > 60 mL/min (>60) Glucose Level 101 MG/DL (74-106) Calcium Level 8.9 MG/DL (8.5-10.1) Vancomycin Level Trough 11.0 ug/mL (5.0-12.0) Current Medications Medications (Trade) Dose Ordered Sig/Tiffany Route PRN Reason Start Time Stop Time Status Last Admin Dose Admin Acetaminophen (Tylenol) 650 mg Q4H PRN ORAL Fever/Headache/Mild Pain 04/17/18 15:45 05/16/18 19:44 04/19/18 16:23 Cefepime HCl 2 gm/ Dextrose 110 ml @ 220 mls/hr EVERY 12 HOURS IVPB 04/17/18 09:00 04/24/18 08:59 04/19/18 08:26 Dextrose (Dextrose 50%) 25 ml STAT PRN IV Hypoglycemia 04/16/18 19:45 05/16/18 19:44 Dextrose (Dextrose 50%) 50 ml STAT PRN IV Hypoglycemia 04/16/18 19:45 05/16/18 19:44 Diphenhydramine HCl (Benadryl) 25 mg Q6H PRN ORAL Itching/Pruritis 04/16/18 19:45 05/16/18 19:44 Enoxaparin Sodium (Lovenox) 40 mg Q24H SUBQ 04/16/18 20:45 05/16/18 20:44 04/18/18 21:43 Famotidine (Pepcid) 40 mg DAILY ORAL 04/17/18 09:00 05/17/18 08:59 04/19/18 08:27 Naproxen (Naprosyn) 500 mg TWICE A DAY ORAL 04/18/18 09:00 05/18/18 08:59 04/19/18 19:13 Ondansetron HCl (Zofran) 4 mg Q6H PRN IVP Nausea & Vomiting 04/16/18 19:45 05/16/18 19:44 Sodium Chloride 1,000 ml @ 75 mls/hr [id number] IVLG 04/16/18 20:38 05/16/18 20:37 04/18/18 13:49 Vancomycin HCl (Vanco rx to dose) 1 ea DAILY PRN MISC Per rx protocol 04/16/18 21:00 05/16/18 20:59 Vancomycin HCl/ Dextrose 250 ml @ 166.667 mls/hr Q8HR@0400,1200,2000 IVPB 04/19/18 12:00 04/24/18 11:59 04/19/18 11:57 Taj De M.D. Apr 19, 2018 20:13
[2018-04-19] MEDS ORDERED: Norco 5mg/325mg tab ORAL PRN (20:15)
[2018-04-19] MEDS: Enoxaparin 40mg Inj SUBQ SCH (20:45)
[2018-04-19] MEDS ORDERED: Tubing IV Secondary IV ONE (21:09)
[2018-04-19] MEDS: Ampicillin/Sulbactam Sod 3 GM in NS 110 ML IVPB SCH (21:59)
[2018-04-20] MEDS: Ampicillin/Sulbactam Sod 3 GM in NS 110 ML IVPB SCH ×4 (03:59→22:00)
[2018-04-20 04:00] VITALS: BP 108/58
[2018-04-20] MEDS: Vancomycin 1250mg/D5W 250ml IVPB SCH ×2 (04:00→12:48)
[2018-04-20 08:00] VITALS: BP 117/64
[2018-04-20] MEDS: Naproxen 500mg tab ORAL SCH ×2 (09:01→18:11)
--- NOTE | 2018-04-20 09:50 | Nephrology Progress Note ---
Assessment/Plan Assessment/Plan A/P 1. Right Knee Edema - septic bursitis, improving on Abx but febrile yesterday - On Abx and improving. - Appreciate Ortho input as [facility] to clean out knee. Tx to other hospital pending - US Right leg r/o DVT 2. DVT Prophylaxis- Lovenox sq Subjective Date patient seen: Apr 20, 2018 Time patient seen: 09:48 ROS Limited/Unobtainable: No Allergies: Coded Allergies: No Known Allergies (Unverified , 04/16/18) All Systems: reviewed and negative except above Subjective Right knee pain improving, no fevers today Objective Last 24 Hour Vital Signs Date Time Temp Pulse Resp B/P (MAP) Pulse Ox O2 Delivery O2 Flow Rate FiO2 04/20/18 09:01 98.6 04/20/18 08:00 98.6 81 18 117/64 (81) 98 98.6 04/20/18 04:00 98.1 73 17 108/58 (75) 98 98.1 04/19/18 21:00 Room Air 04/19/18 20:00 98.7 87 18 107/66 (80) 97 98.7 04/19/18 20:00 98.7 87 18 107/66 (80) 97 98.7 04/19/18 19:13 101.5 04/19/18 17:22 99.0 04/19/18 16:23 101.5 04/19/18 16:00 100.5 92 20 109/70 (83) 98 100.5 04/19/18 12:40 97.6 86 18 125/79 (94) 97 97.6 Intake and Output 04/19/18 04/20/18 19:00 07:00 Intake Total 360 ml 1095 ml Output Total 400 ml 600 ml Balance -40 ml 495 ml Intake Oral 360 ml 150 ml IV Total 945 ml Output Urine Total 400 ml 600 ml # Voids 2 Height (Feet): 5 Height (Inches): 9.00 Weight (Pounds): 173 General Appearance: WD/WN, no apparent distress EENT: PERRL/EOMI, normal ENT inspection Neck: normal alignment, supple Cardiovascular: normal rate, regular rhythm Respiratory/Chest: lungs clear, normal breath sounds Abdomen: normal bowel sounds, non tender, soft Edema: no edema noted Arm (L), no edema noted Arm (R), no edema noted Leg (L), no edema noted Leg (R), no edema noted Pedal (L), no edema noted Pedal (R), no edema noted Generalized Mikey Luna M.D. Apr 20, 2018 09:50
[2018-04-20 12:00] VITALS: BP 110/63
--- NOTE | 2018-04-20 12:56 | Infectious Diseases Prog Note ---
Assessment/Plan Problems: (1) Right knee pain Assessment & Plan: due to recent exertion and trauma , with soft tissue swelling, suspect septic bursitis with negative right knee joint fluids for infection , S/P aspiration of the right knee joint, with no evidence of crystals . knee fluids culture is negative so far , continue vancomycin and switch to unasyn empirically pending culture results. screening for gout, RA, is in progress, SADIA is negative (2) Prepatellar bursitis Assessment & Plan: not improving with pain management and antibiotics empirically , he will need I&D as per discussion with ortho, he will need to go to a hospital contracted with his insurance for his I&D , D/W ortho and the primary (3) Cellulitis of right knee Assessment & Plan: continue antibiotics , avoid knee trauma and exertion Subjective Constitutional: Reports: no symptoms HEENT: Reports: no symptoms Respiratory: Reports: no symptoms Breasts: Reports: no symptoms Cardiovascular: Reports: no symptoms Gastrointestinal/Abdominal: Reports: no symptoms Genitourinary: Reports: no symptoms Neurologic: Reports: no symptoms Psychiatric: Reports: no symptoms Skin: Reports: no symptoms Endocrine: Reports: no symptoms Hematologic: Reports: no symptoms Musculoskeletal: Reports: pain, swelling, stiffness Allergies: Coded Allergies: No Known Allergies (Unverified , 04/16/18) Subjective right knee suprapatellar effusion with tenderness Objective Vital Signs Last 24 Hour Vital Signs Date Time Temp Pulse Resp B/P (MAP) Pulse Ox O2 Delivery O2 Flow Rate FiO2 04/20/18 12:00 98.8 81 18 110/63 (79) 100 98.8 04/20/18 10:00 98.6 04/20/18 09:01 98.6 04/20/18 09:00 Room Air 04/20/18 08:00 98.6 81 18 117/64 (81) 98 98.6 04/20/18 04:00 98.1 73 17 108/58 (75) 98 98.1 04/19/18 21:00 Room Air 04/19/18 20:00 98.7 87 18 107/66 (80) 97 98.7 04/19/18 20:00 98.7 87 18 107/66 (80) 97 98.7 04/19/18 19:13 101.5 04/19/18 17:22 99.0 04/19/18 16:23 101.5 04/19/18 16:00 100.5 92 20 109/70 (83) 98 100.5 Height (Feet): 5 Height (Inches): 9.00 Weight (Pounds): 173 General Appearance: WD/WN, no acute distress HEENT: normocephalic, atraumatic, anicteric, mucous membranes moist Respiratory/Chest: chest wall non-tender, lungs clear, normal breath sounds, no respiratory distress, no accessory muscle use Cardiovascular: normal peripheral pulses, normal rate, regular rhythm, no gallop/murmur, no JVD Abdomen: normal bowel sounds, soft, non tender, no organomegaly, non distended , no mass Extremities: no cyanosis, no clubbing Skin: no rash, no lesions, no ulcers Musculoskeletal: other - right knee swelling with tenderness and decreased range of motion Microbiology Date/Time Source Procedure Growth Status 04/18/18 21:05 Blood Blood Culture - Preliminary NO GROWTH AFTER 24 HOURS Resulted Laboratory Tests Test 04/20/18 11:15 Vancomycin Level Trough 11.2 ug/mL (5.0-12.0) Current Medications Medications (Trade) Dose Ordered Sig/Tiffany Route PRN Reason Start Time Stop Time Status Last Admin Dose Admin Acetaminophen (Tylenol) 650 mg Q4H PRN ORAL Fever/Headache/Mild Pain 04/17/18 15:45 05/16/18 19:44 04/19/18 16:23 Acetaminophen/ Hydrocodone Bitart ([place] 5/325) 1 tab Q6H PRN ORAL For Pain 04/19/18 20:15 04/26/18 20:14 Ampicillin Sodium/ Sulbactam Sodium 3 gm/Sodium Chloride 110 ml @ 220 mls/hr Q6H IVPB 04/19/18 22:00 04/26/18 21:59 04/20/18 09:00 Dextrose (Dextrose 50%) 25 ml STAT PRN IV Hypoglycemia 04/16/18 19:45 05/16/18 19:44 Dextrose (Dextrose 50%) 50 ml STAT PRN IV Hypoglycemia 04/16/18 19:45 05/16/18 19:44 Diphenhydramine HCl (Benadryl) 25 mg Q6H PRN ORAL Itching/Pruritis 04/16/18 19:45 05/16/18 19:44 Enoxaparin Sodium (Lovenox) 40 mg Q24H SUBQ 04/16/18 20:45 05/16/18 20:44 04/19/18 20:45 Famotidine (Pepcid) 40 mg DAILY ORAL 04/17/18 09:00 05/17/18 08:59 04/20/18 09:01 Naproxen (Naprosyn) 500 mg TWICE A DAY ORAL 04/18/18 09:00 05/18/18 08:59 04/20/18 09:01 Ondansetron HCl (Zofran) 4 mg Q6H PRN IVP Nausea & Vomiting 04/16/18 19:45 05/16/18 19:44 Sodium Chloride 1,000 ml @ 75 mls/hr [id number] IVLG 04/16/18 20:38 05/16/18 20:37 04/20/18 02:46 Vancomycin HCl (Vanco rx to dose) 1 ea DAILY PRN MISC Per rx protocol 04/16/18 21:00 05/16/18 20:59 Vancomycin HCl/ Dextrose 250 ml @ 125 mls/hr Q12H IVPB 04/20/18 21:00 04/25/18 20:59 Vancomycin HCl/ Dextrose 250 ml @ 166.667 mls/hr Q8HR@0400,1200,2000 IVPB 04/19/18 12:00 04/20/18 14:00 04/20/18 12:48 Taj De M.D. Apr 20, 2018 12:56
[2018-04-20 16:03] VITALS: BP 112/65
[2018-04-20 20:00] VITALS: BP 93/61
[2018-04-20] MEDS: Vancomycin 1.5 GM/D5W 250ML IVPB SCH (20:38)
[2018-04-20] MEDS: Enoxaparin 40mg Inj SUBQ SCH (20:43)
[2018-04-21] VITALS: BP 109/59
[2018-04-21] MEDS: Ampicillin/Sulbactam Sod 3 GM in NS 110 ML IVPB SCH ×4 (03:46→20:50)
[2018-04-21 05:40] VITALS: BP 126/80
[2018-04-21 07:22] LABS: BASOPHILS % (AUTO) 0.9 % (0.0-2.0); EOSINOPHILS % (AUTO) 4.2 % (0.0-3.0); HEMATOCRIT 42.9 % (42.0-52.0); HEMOGLOBIN 14.8 G/DL (14.2-18.0); LYMPHOCYTES % (AUTO) 18.5 % (20.0-45.0); MEAN CORPUSCULAR VOLUME 94 FL (80-99); NEUTROPHILS % (AUTO) 68.3 % (45.0-75.0); PLATELET COUNT 277 K/UL (150-450); RED BLOOD COUNT 4.56 M/UL (4.70-6.10); RED CELL DISTRIBUTION WIDTH 10.1 % (11.6-14.8); WHITE BLOOD COUNT 9.5 K/UL (4.8-10.8)
[2018-04-21 07:41] LABS: ANION GAP 6 mmol/L (5-15); BLOOD UREA NITROGEN 11 mg/dL (7-18); CALCIUM 8.9 MG/DL (8.5-10.1); CARBON DIOXIDE 28 MMOL/L (21-32); CHLORIDE 106 MMOL/L (98-107); CREATININE 0.8 MG/DL (0.55-1.30); POTASSIUM 4.2 MMOL/L (3.5-5.1); SODIUM 140 MMOL/L (136-145)
[2018-04-21 08:00] VITALS: BP 132/70
[2018-04-21] MEDS: Vancomycin 1.5 GM/D5W 250ML IVPB SCH ×2 (08:16→20:50)
[2018-04-21] MEDS: Naproxen 500mg tab ORAL SCH (08:17)
--- NOTE | 2018-04-21 08:31 | Nephrology Progress Note ---
Assessment/Plan Assessment/Plan A/P 1. Right Knee Edema- resolved - septic bursitis, almost resolved on Abx - at this point may not need surgery, await ID final reccs 2. DVT Prophylaxis- Lovenox sq Subjective Date patient seen: Apr 21, 2018 Time patient seen: 08:29 Allergies: Coded Allergies: No Known Allergies (Unverified , 04/16/18) All Systems: reviewed and negative except above Subjective Right knee vaslt improved. no fevers Objective Last 24 Hour Vital Signs Date Time Temp Pulse Resp B/P (MAP) Pulse Ox O2 Delivery O2 Flow Rate FiO2 04/21/18 05:40 98.5 75 18 126/80 (95) 98 98.5 04/21/18 00:00 98.6 90 18 109/59 (76) 98 98.6 04/20/18 21:00 Room Air 04/20/18 20:00 98.8 95 18 93/61 (72) 98 98.8 04/20/18 19:10 98.5 04/20/18 18:11 98.5 04/20/18 16:03 98.5 87 20 112/65 (81) 97 98.5 04/20/18 12:00 98.8 81 18 110/63 (79) 100 98.8 04/20/18 09:01 98.6 04/20/18 09:00 Room Air Intake and Output 04/20/18 04/21/18 19:00 07:00 Intake Total 1815 ml 1270 ml Output Total 400 ml 500 ml Balance 1415 ml 770 ml Intake Oral 840 ml 200 ml IV Total 975 ml 1070 ml Output Urine Total 400 ml 500 ml # Voids 3 Laboratory Tests 04/20/18 11:15: Vancomycin Level Trough 11.2 04/21/18 06:50: White Blood Count 9.5, Red Blood Count 4.56L, Hemoglobin 14.8, Hematocrit 42.9, Mean Corpuscular Volume 94, Mean Corpuscular Hemoglobin 32.5H, Mean Corpuscular Hemoglobin Concent 34.5, Red Cell Distribution Width 10.1L, Platelet Count 277, Mean Platelet Volume 7.9, Neutrophils (%) (Auto) 68.3, Lymphocytes (%) (Auto) 18.5L, Monocytes (%) (Auto) 8.0, Eosinophils (%) (Auto) 4.2H, Basophils (%) ( Auto) 0.9, Sodium Level 140, Potassium Level 4.2, Chloride Level 106, Carbon Dioxide Level 28, Anion Gap 6, Blood Urea Nitrogen 11, Creatinine 0.8, Estimat Glomerular Filtration Rate > 60, Glucose Level 105, Calcium Level 8.9 Height (Feet): 5 Height (Inches): 9.00 Weight (Pounds): 173 General Appearance: WD/WN, no apparent distress EENT: PERRL/EOMI Neck: non-tender, normal alignment Cardiovascular: normal rate, regular rhythm Respiratory/Chest: lungs clear, normal breath sounds Abdomen: non tender, soft Edema: no edema noted Arm (L), no edema noted Arm (R), no edema noted Leg (L), no edema noted Leg (R), no edema noted Pedal (L), no edema noted Pedal (R), no edema noted Generalized Mikey Luna M.D. Apr 21, 2018 08:31
[2018-04-21 12:00] VITALS: BP 111/72
--- NOTE | 2018-04-21 14:16 | Infectious Diseases Prog Note ---
Assessment/Plan Problems: (1) Right knee pain Assessment & Plan: due to recent exertion and trauma , with soft tissue swelling, suspect septic bursitis with negative right knee joint fluids for infection , S/P aspiration of the right knee joint, and no evidence of crystals . knee fluids culture is negative which rule out septic joint , continue vancomycin and unasyn empirically . will switch to oral augmeneten once ready to go home . screening for SADIA is negative (2) Prepatellar bursitis Assessment & Plan: improving with pain management and antibiotics empirically , may not need I&D if continues to improve with antibiotics alone , will continue antibiotics fot 10 more days , he was directed to have follow up with ortho as an outpatient (3) Cellulitis of right knee Assessment & Plan: improving with antibiotics , avoid knee trauma and exertion , continue NSAID and rest as needed Subjective Constitutional: Reports: no symptoms HEENT: Reports: no symptoms Respiratory: Reports: no symptoms Breasts: Reports: no symptoms Cardiovascular: Reports: no symptoms Gastrointestinal/Abdominal: Reports: no symptoms Genitourinary: Reports: no symptoms Neurologic: Reports: no symptoms Psychiatric: Reports: no symptoms Skin: Reports: no symptoms Endocrine: Reports: no symptoms Hematologic: Reports: no symptoms Musculoskeletal: Reports: pain, swelling, other - right knee skin swelling above the patella , no local muscle tenderness Allergies: Coded Allergies: No Known Allergies (Unverified , 04/16/18) Subjective right knee suprapatellar effusion with tenderness Objective Vital Signs Last 24 Hour Vital Signs Date Time Temp Pulse Resp B/P (MAP) Pulse Ox O2 Delivery O2 Flow Rate FiO2 04/21/18 12:00 98.8 85 20 111/72 (85) 97 98.8 04/21/18 09:00 Room Air 04/21/18 08:00 98.7 72 20 132/70 (90) 99 98.7 04/21/18 05:40 98.5 75 18 126/80 (95) 98 98.5 04/21/18 00:00 98.6 90 18 109/59 (76) 98 98.6 04/20/18 21:00 Room Air 04/20/18 20:00 98.8 95 18 93/61 (72) 98 98.8 04/20/18 19:10 98.5 04/20/18 18:11 98.5 04/20/18 16:03 98.5 87 20 112/65 (81) 97 98.5 Height (Feet): 5 Height (Inches): 9.00 Weight (Pounds): 173 General Appearance: WD/WN, no acute distress HEENT: normocephalic, atraumatic, anicteric, mucous membranes moist, PERRL Respiratory/Chest: chest wall non-tender, lungs clear, normal breath sounds, no respiratory distress, no accessory muscle use Cardiovascular: normal peripheral pulses, normal rate, regular rhythm, no gallop/murmur, no JVD Abdomen: normal bowel sounds, soft, non tender, no organomegaly, non distended , no mass, no scars Extremities: no cyanosis, no clubbing Skin: no rash, no lesions, no ulcers Neurologic/Psychiatric: alert, oriented x 3, responsive Lymphatic: no neck adenopathy, no groin adenopathy Musculoskeletal: normal muscle bulk, other - right knee and supra patella swelling with local tenderness Microbiology Date/Time Source Procedure Growth Status 04/18/18 21:05 Blood Blood Culture - Preliminary NO GROWTH AFTER 48 HOURS Resulted Laboratory Tests Test 04/21/18 06:50 White Blood Count 9.5 K/UL (4.8-10.8) Red Blood Count 4.56 M/UL (4.70-6.10) L Hemoglobin 14.8 G/DL (14.2-18.0) Hematocrit 42.9 % (42.0-52.0) Mean Corpuscular Volume 94 FL (80-99) Mean Corpuscular Hemoglobin 32.5 PG (27.0-31.0) H Mean Corpuscular Hemoglobin Concent 34.5 G/DL (32.0-36.0) Red Cell Distribution Width 10.1 % (11.6-14.8) L Platelet Count 277 K/UL (150-450) Mean Platelet Volume 7.9 FL (6.5-10.1) Neutrophils (%) (Auto) 68.3 % (45.0-75.0) Lymphocytes (%) (Auto) 18.5 % (20.0-45.0) L Monocytes (%) (Auto) 8.0 % (1.0-10.0) Eosinophils (%) (Auto) 4.2 % (0.0-3.0) H Basophils (%) (Auto) 0.9 % (0.0-2.0) Sodium Level 140 MMOL/L (136-145) Potassium Level 4.2 MMOL/L (3.5-5.1) Chloride Level 106 MMOL/L (98-107) Carbon Dioxide Level 28 MMOL/L (21-32) Anion Gap 6 mmol/L (5-15) Blood Urea Nitrogen 11 mg/dL (7-18) Creatinine 0.8 MG/DL (0.55-1.30) Estimat Glomerular Filtration Rate > 60 mL/min (>60) Glucose Level 105 MG/DL (74-106) Calcium Level 8.9 MG/DL (8.5-10.1) Current Medications Medications (Trade) Dose Ordered Sig/Tiffany Route PRN Reason Start Time Stop Time Status Last Admin Dose Admin Acetaminophen (Tylenol) 650 mg Q4H PRN ORAL Fever/Headache/Mild Pain 04/17/18 15:45 05/16/18 19:44 04/19/18 16:23 Acetaminophen/ Hydrocodone Bitart ([place] 5/325) 1 tab Q6H PRN ORAL For Pain 04/19/18 20:15 04/26/18 20:14 Ampicillin Sodium/ Sulbactam Sodium 3 gm/Sodium Chloride 110 ml @ 220 mls/hr Q6H IVPB 04/19/18 22:00 04/26/18 21:59 04/21/18 10:42 Dextrose (Dextrose 50%) 25 ml STAT PRN IV Hypoglycemia 04/16/18 19:45 05/16/18 19:44 Dextrose (Dextrose 50%) 50 ml STAT PRN IV Hypoglycemia 04/16/18 19:45 05/16/18 19:44 Diphenhydramine HCl (Benadryl) 25 mg Q6H PRN ORAL Itching/Pruritis 04/16/18 19:45 05/16/18 19:44 Enoxaparin Sodium (Lovenox) 40 mg Q24H SUBQ 04/16/18 20:45 05/16/18 20:44 04/20/18 20:43 Famotidine (Pepcid) 40 mg DAILY ORAL 04/17/18 09:00 05/17/18 08:59 04/21/18 08:16 Ondansetron HCl (Zofran) 4 mg Q6H PRN IVP Nausea & Vomiting 04/16/18 19:45 05/16/18 19:44 04/21/18 05:45 Sodium Chloride 1,000 ml @ 75 mls/hr [id number] IVLG 04/16/18 20:38 05/16/18 20:37 04/20/18 22:00 Vancomycin HCl (Vanco rx to dose) 1 ea DAILY PRN MISC Per rx protocol 04/16/18 21:00 05/16/18 20:59 Vancomycin HCl/ Dextrose 250 ml @ 125 mls/hr Q12H IVPB 04/20/18 21:00 04/25/18 20:59 04/21/18 08:16 Taj De M.D. Apr 21, 2018 14:16
[2018-04-21 16:00] VITALS: BP 113/61
[2018-04-21 20:00] VITALS: BP 100/63
[2018-04-21] MEDS: Enoxaparin 40mg Inj SUBQ SCH (21:16)
[2018-04-22 00:40] VITALS: BP 102/57
[2018-04-22] MEDS: Ampicillin/Sulbactam Sod 3 GM in NS 110 ML IVPB SCH ×2 (05:12→11:14)
[2018-04-22 08:00] VITALS: BP 144/77
[2018-04-22 08:13] LABS: BASOPHILS % (AUTO) 1.1 % (0.0-2.0); EOSINOPHILS % (AUTO) 6.1 % (0.0-3.0); HEMATOCRIT 46.1 % (42.0-52.0); HEMOGLOBIN 15.9 G/DL (14.2-18.0); LYMPHOCYTES % (AUTO) 24.7 % (20.0-45.0); MEAN CORPUSCULAR VOLUME 95 FL (80-99); MONOCYTES % (AUTO) 6.7 % (1.0-10.0); NEUTROPHILS % (AUTO) 61.3 % (45.0-75.0); PLATELET COUNT 335 K/UL (150-450); RED BLOOD COUNT 4.85 M/UL (4.70-6.10); RED CELL DISTRIBUTION WIDTH 10.3 % (11.6-14.8); WHITE BLOOD COUNT 8.8 K/UL (4.8-10.8)
--- NOTE | 2018-04-22 08:51 | Nephrology Progress Note ---
Assessment/Plan Assessment/Plan A/P 1. Right Knee Edema- much improved and patient mobile - septic bursitis, resolving on Abx - if cleared by ID, DC today on oral Abx and f/u ID 1 week 2. DVT Prophylaxis- Lovenox sq Subjective Date patient seen: Apr 22, 2018 Time patient seen: 08:49 ROS Limited/Unobtainable: No Allergies: Coded Allergies: No Known Allergies (Unverified , 04/16/18) Subjective Right knee vaslt improved and possible DC today Objective Last 24 Hour Vital Signs Date Time Temp Pulse Resp B/P (MAP) Pulse Ox O2 Delivery O2 Flow Rate FiO2 04/22/18 08:34 98.5 04/22/18 08:06 Room Air 04/22/18 08:00 97.8 71 19 144/77 (99) 97 97.8 04/22/18 00:40 98.5 78 18 102/57 (72) 96 98.5 04/21/18 21:00 Room Air 04/21/18 20:00 99.1 85 16 100/63 (75) 97 99.1 04/21/18 16:00 97.8 89 20 113/61 (78) 98 97.8 04/21/18 12:00 98.8 85 20 111/72 (85) 97 98.8 04/21/18 09:00 Room Air Intake and Output 04/21/18 04/22/18 19:00 07:00 Intake Total 1480 ml 1660 ml Output Total 1050 ml 1150 ml Balance 430 ml 510 ml Intake Oral 560 ml 780 ml IV Total 920 ml 880 ml Output Urine Total 1050 ml 1150 ml # Voids 2 3 Laboratory Tests 04/22/18 07:55: White Blood Count 8.8, Red Blood Count 4.85, Hemoglobin 15.9, Hematocrit 46.1, Mean Corpuscular Volume 95, Mean Corpuscular Hemoglobin 32.7H, Mean Corpuscular Hemoglobin Concent 34.4, Red Cell Distribution Width 10.3L, Platelet Count 335, Mean Platelet Volume 7.0, Neutrophils (%) (Auto) 61.3, Lymphocytes (%) (Auto) 24.7, Monocytes (%) (Auto) 6.7, Eosinophils (%) (Auto) 6.1H, Basophils (%) (Auto ) 1.1, Vancomycin Level Trough [Pending] Height (Feet): 5 Height (Inches): 9.00 Weight (Pounds): 173 General Appearance: WD/WN, no apparent distress EENT: PERRL/EOMI Neck: non-tender, normal alignment Cardiovascular: normal rate, regular rhythm Respiratory/Chest: lungs clear Abdomen: non tender, soft Edema: 1+ Leg (R) Mikey Luna M.D. Apr 22, 2018 08:51
--- NOTE | 2018-04-22 08:54 | Discharge Instructions ---
Discharge Instructions Discharge Instructions Diet: regular Resume Normal Activity?: No Activity: light activity, as tolerated Special Instructions Follow up ID Dr De 1 week For Congestive Heart Failure Reminder Report to your physician any weight gain of 5 pounds or more in one week. Mikey Luna M.D. Apr 22, 2018 08:54
[2018-04-22] MEDS ORDERED: AUGMENTIN 875-1 EAC1 ORAL (09:01)
[2018-04-22] MEDS: Vancomycin 1.5 GM/D5W 250ML IVPB SCH (09:09)
--- NOTE | 2018-04-22 11:47 | Consultation ---
DATE OF CONSULTATION: 04/17/2018 CONSULTING PHYSICIAN: Juan Alberto Monroy M.D. HISTORY OF PRESENT ILLNESS: The patient is a 38-year-old gentleman, who presents with swelling of the right knee with pus since Saturday. The patient denies any trauma or any specific issues. The patient subsequently admitted. Orthopedic consultation was obtained for further care and recommendation. PAST MEDICAL HISTORY: None listed. PAST SURGICAL HISTORY: None. MEDICATIONS: Per intake chart. PHYSICAL EXAMINATION: The patient is alert and oriented. He is resting comfortably in the exam bed. MUSCULOSKELETAL: Right knee parapatellar fusion. ASSESSMENT: Right parapatellar bursitis/abscess. DISCUSSION: At this point, it does not look like he has septic joint. Most likely, if anything he has a parapatellar bursitis or possible abscess. At this point, what I recommend is to continue the IV antibiotics, follow up on the culture results. Possibility of requiring an I and D of prepatella bursa was discussed with the patient. Clinically, there is no evidence of any septic joint. Juan Alberto Monroy M.D. DR: Abbey JOB#: [id number] CC: CHRISTINE
[2018-04-22 12:00] VITALS: BP 133/71
--- NOTE | 2018-04-23 08:54 | Discharge Summary ---
Discharge Summary Discharge Summary _ DATE OF ADMISSION: 04/16/2018 DATE OF DISCHARGE: 04/22/2018 REASON FOR ADMISSION: 38 years old male presented with four days of increasing right knee pain and swelling. 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 He rated his pain as 10 out of 10 on a scale 1-10 ,burning and stinging. He experienced difficulty bending his right knee. He had been seen by his primary doctor , who advised him to come to the hospital for evaluation. No trauma or injury to the knee prior to onset of symptoms. No chest pain or shortness of breath. No neck pain, no headache. No nausea, no vomiting, no diarrhea, no abdominal pain , no dysuria. Upon presentation patient was febrile 102.9 and tachycardic 106. Laboratory workup revealed leukocytosis ,stable hemoglobin and hematocrit ,CRP 6.4. Urinalysis revealed no evidence of UTI . Stable renal parameters and electrolytes. X-ray of the right knee revealed prepatellar soft tissue swelling , but no acute fracture or dislocation, no suprapatellar effusion. Chest x-ray revealed no acute cardiopulmonary pathology. Patient admitted with diagnoses of right knee cellulitis, right knee pain , prepatellar bursitis. CONSULTANTS: ID specialist Dr. De Orthopedic surgery Dr. Monroy [facility] COURSE: Patient admitted to medical surgical floor. Patient started on IV fluids and empiric antibiotics. Pain management was addressed. ID consult was closely followed. Blood culture initial and repeated were negative. Patient undergone aspiration of right knee joint on April 17 by interventional radiology , which yielded about 2ml of clear yellow fluid. Culture of synovial fluid was negative. Patient with intermittent persistent fevers. Antibiotic regimen optimized as per ID specialist recommendations. Orthopedic surgeon seen and evaluated patient. According to orthopedic surgeon , patient had no clinical evidence of septic arthritis. He recommended at this point continue with IV antibiotics . Patient may need I&D if not clinically improved. Supportive care provided. DVT prophylaxis provided . Venous duplex bilateral lower extremity revealed no evidence of acute DVT. SADIA screen was negative . Leukocytosis resolved . Persistent intermittent fevers resolved. Infectious disease doctor cleared for discharge on oral antibiotics, to be continued for additional 7 days. Patient was stable for discharge home FINAL DIAGNOSES: Right knee cellulitis Right parapatellar bursitis Right knee pain DISCHARGE MEDICATIONS: See Medication Reconciliation list. DISCHARGE INSTRUCTIONS: Patient discharged home. Follow up with primary care provider in one week. Instructed on return to ED precautions I have been assigned to dictate discharge summary for this account. I was not involved in the patient's management. Dayanara Weeks NP Apr 23, 2018 08:54
== END 2018-04-22 12:55 | disposition home or self-care (01) | DRG 351 ==
LOC: EMR 17:23 → 3E 17:45 → EDBEDREQ 18:59
PROC: 0S9C3ZZ Drainage of Right Knee Joint, Percutaneous Approach (ICD-10-PCS; principal; 2018-04-16)
DX: M70.41 Prepatellar bursitis, right knee (principal); L03.115 Cellulitis of right lower limb
CPT/HCPCS: 36415; 71045; 80048; 80053; 80202; 81003; 82248; 82550; 83605; 84484; 84550; 85025; 85610; 85651; 85730; 86039; 86140; 87040; 87070; 87205; 89051; 90471; 90715; 93970; J2405

== ENCOUNTER 2019-10-29 11:55 | Emergency (ER) | payer MEDICAID ==
[~2019-10-29] VITALS: Ht 175.3 cm; Wt 80.3 kg
[~2019-10-29 11:55] MED LIST: AUGMENTIN 875-1 EAC1 ORAL
[2019-10-29] MEDS ORDERED: CYCLOBENZAPRINE10 MG ORAL (12:08)
[2019-10-29] MEDS ORDERED: DICLOFENAC SODI75 MG ORAL (12:08)
--- NOTE | 2019-10-29 12:34 | Emergency Room Report ---
History of Present Illness General Chief Complaint: Upper Extremity Injury Source: Patient Present Illness HPI 39-year-old male presents to the emergency department complaining of 10 out of 10 in severity pain localized to the right posterior shoulder x10 days. Patient reports progressive symptoms onset while at work. 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 Patient described having repetitive movements prior to onset of his symptoms. He denies trauma or fall. He denies paresthesias. He reports pain is exacerbated upon raising his right arm he states that the pain is worse at night when he is attempting to sleep. He states he is currently taking diclofenac and Flexeril given to him by his primary care provider however he has had no relief and he states he was unable to sleep last night due to the pain which prompted him to come to the ER. Denies numbness tingling or loss of sensation or gross motor movements of the extremities. Denies midline neck or back pain. Denies CP, Palpitations, LOC , AMS, dizziness, Changes in Vision, weakness or a sudden severe headache. Allergies: Coded Allergies: No Known Allergies (Unverified , 04/16/18) Patient History Past Medical History: see triage record Past Surgical History: none Pertinent Family History: none Reviewed Nursing Documentation: PMH: Agreed; PSxH: Agreed Nursing Documentation-PMH Past Medical History: No Stated History Hx Cardiac Problems: No Hx Cancer: No Hx Gastrointestinal Problems: No Hx Neurological Problems: No Review of Systems All Other Systems: negative except mentioned in HPI Physical Exam Vital Signs Date Time Temp Pulse Resp B/P (MAP) Pulse Ox O2 Delivery O2 Flow Rate FiO2 220/20 12:02 98.4 98 17 112/71 (85) 99 Room Air Sp02 EP Interpretation: reviewed, normal General Appearance: no apparent distress, alert, GCS 15, non-toxic Head: normocephalic, atraumatic Eyes: bilateral eye normal inspection, bilateral eye PERRL ENT: hearing grossly normal, normal voice Neck: full range of motion Respiratory: lungs clear, normal breath sounds, speaking full sentences Cardiovascular #1: regular rate, rhythm, normal capillary refill Cardiovascular #2: 2+ radial (R) Musculoskeletal: back normal, normal range of motion, gait/station normal, tender - Tenderness to the right trapezius and right deltoid, full range of motion, no localized bony tenderness, deformity, step-off of the shoulder or clicking with range of motion. Neurologic: alert, motor strength/tone normal, oriented x3, sensory intact, responsive, speech normal, grossly normal, normal inspection, no focal defects Psychiatric: judgement/insight normal Skin: normal color Medical Decision Making PA Attestation Dr. Potter is my supervising Physician whom patient management has been discussed with. Diagnostic Impression: Primary Impression: Overuse syndrome of shoulder Qualified Codes: S46.911A - Strain of unspecified muscle, fascia and tendon at shoulder and upper arm level, right arm, initial encounter Additional Impression: Other soft tissue disorders related to use, overuse and pressure, right shoulder ER Course 39-year-old male presents to the emergency department complaining of 10 out of 10 in severity pain localized to the right posterior shoulder x10 days. Patient reports progressive symptoms onset while at work. 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 Patient described having repetitive movements prior to onset of his symptoms. He denies trauma or fall. He denies paresthesias. He reports pain is exacerbated upon raising his right arm he states that the pain is worse at night when he is attempting to sleep. He states he is currently taking diclofenac and Flexeril given to him by his primary care provider however he has had no relief and he states he was unable to sleep last night due to the pain which prompted him to come to the ER. Denies numbness tingling or loss of sensation or gross motor movements of the extremities. Denies midline neck or back pain. Denies CP, Palpitations, LOC , AMS, dizziness, Changes in Vision, weakness or a sudden severe headache. Ddx considered but are not limited to Fracture, dislocation, contusion, Sprain/ Strain/Spasm, over use injury,or an impingement syndrome just to name a few. Vital signs: are WNL, pt. is afebrile H&PE are most consistent with musculoskeletal injury will perform imaging to r/ o fractures/dislocations. ORDERS: - emergent imaging is not required at this time as patient did not have any trauma and does not have any localized bony tenderness. No significant nerve injury. ED INTERVENTIONS: - Lidoderm patch DISCHARGE: At this time pt. is stable for d/c to home. Will provide printed patient care instructions, and any necessary prescriptions. Care plan and follow up instructions have been discussed with the patient prior to discharge. Last Vital Signs Date Time Temp Pulse Resp B/P (MAP) Pulse Ox O2 Delivery O2 Flow Rate FiO2 10/29/19 12:02 98.4 98 17 112/71 (85) 99 Room Air Disposition: HOME, SELF-CARE Condition: Stable Departure Forms: Return to Work Return to Work Date: Nov 02, 2019 Work Restrictions: No Heavy Lifting Other Restrictions: NO use of right arm x 1 week. Return to Full Activity: Nov 09, 2019 Patient Instructions: Repetitive Strain Injuries Additional Instructions: ~ ~ An emergent medical condition has not been identified based on this patients presentation, exam and any necessary testing/imaging. The patient is determined to be stable for outpatient follow-up and management of symptoms by a primary care provider. Take medications as directed. Follow up with a Primary Care Provider in 3-5 days, even if your symptoms have resolved. --Please review list of primary care clinics, if you do not already have a primary care provider Return sooner to ED if new symptoms occur, or current symptoms become worse. Do not drink alcohol, drive, or operate heavy machinery while taking Robaxin ( Muscle Relaxers) as this may cause drowsiness. - Please note that this Emergency Department Report was dictated using [employer] Do Now I Don'tcoat check attendant technology software, occasionally this can lead to erroneous entry secondary to interpretation by the dictation equipment. Guerda Pete Oct 29, 2019 12:34
[2019-10-29] MEDS ORDERED: Methocarbamol 500mg tab ORAL ONE (12:45)
[2019-10-29] MEDS ORDERED: Ketorolac 30mg Inj IM ONE (12:45)
[2019-10-29] MEDS ORDERED: LIDODERM700 M1 TOPIC (12:51)
[2019-10-29] MEDS ORDERED: ROBAXIN-750750 MG PO (12:51)
[2019-10-29] MEDS ORDERED: NAPROXEN500 M2 ORAL (12:51)
--- NOTE | 2019-10-29 13:25 | NUR ---
ER DISCHARGE NOTE: Patient is cleared to be discharged per ERMD, pt is aox4, on room air, with stable vital signs. pt was given dc and prescription instructions, pt was able to verbalize understanding, pt is able to ambulate with steady gait. pt took all belongings.
[2019-10-29 14:49] VITALS: BP 112/71
== END 2019-10-29 13:25 | disposition home or self-care (01) ==
LOC: EMR 12:45
DX: M70.811 Other soft tissue disorders related to use, overuse and pressure, right shoulder (principal); S46.911A Strain of unspecified muscle, fascia and tendon at shoulder and upper arm level, right arm, initial encounter; Y93.H3 Activity, building and construction; Y92.9 Unspecified place or not applicable
CPT/HCPCS: 96372; J1885; Z7502; 99283

== ENCOUNTER 2020-04-11 14:28 | Emergency (ER) | payer MEDICAID ==
[~2020-04-11] VITALS: Ht 175.3 cm; Wt 79.4 kg
[~2020-04-11 14:28] MED LIST changes: +CYCLOBENZAPRINE10 MG ORAL; +DICLOFENAC SODI75 MG ORAL; +LIDODERM700 M1 TOPIC; +NAPROXEN500 M2 ORAL; +ROBAXIN-750750 MG PO
--- NOTE | 2020-04-11 14:50 | NUR ---
ED Nurse Note: Pt ambulated to ED from home walked in due to left index finger injury and blister x 1 week. Last tetanus shot a few months ago. Pt's A&Ox4, calm and cooperative, VSS, on RA, afebrile on triage.
[2020-04-11] MEDS ORDERED: Cephalexin 500mg cap ORAL ONE (15:00)
--- NOTE | 2020-04-11 15:00 | NUR ---
ED Nurse Note: per ERPA, may obtain hydrogen peroxide in phyxis for wound cleaning.
--- NOTE | 2020-04-11 15:02 | NUR ---
ED Nurse Note: x-ray tech at pt's room
[2020-04-11 15:05] VITALS: BP 115/76
[2020-04-11] MEDS ORDERED: Hydrogen Peroxide 473ml Bottle TOPIC ONE (15:08)
--- NOTE | 2020-04-11 15:28 | NUR ---
ED Nurse Note: pt complains of itchiness on bilateal ears, upper extremities and he throat after taking the antibiotic. Notified ERPA.
--- NOTE | 2020-04-11 15:49 | Emergency Room Report ---
History of Present Illness General Chief Complaint: Upper Extremity Injury Source: Patient Present Illness HPI 40-year-old male with no signal past medical history here complaining of pain and swelling left index finger x1 week. Patient reports that he accidentally cut underneath his left nail and nailbed a week ago with a side of the refrigerator however has been applying [place] juice over the area to deal with the pain and possible infection. Patient reports that today he started feeling a lot of pain when bending the PIP joint. Obvious swelling cellulitis noted minimal pus drainage. Patient also complains of numbness in the tip of the finger however denies any pain radiation, tingling. Patient is neurovascularly intact. Patient has full strength bilateral upper extremities. Has not taken medication for symptom relief. Also reports that he got a tattoo done on his neck a day ago between pruritic. After administration of the first dose of Keflex in the ED patient started feeling itchy in his throat and all over her skin. Patient did not want to anaphylactic shock. Denies any shortness of breath. Airway was patent. Patient reports that he did not know the allergy to Keflex. After administration of prednisone, Benadryl and Zofran patient felt better. Patient reports that he is feeling nauseated. Denies any fever chills, chest pain, shortness of breath, associated symptoms. Allergies: Coded Allergies: CEPHALEXIN (Verified Allergy, Unknown, 04/11/20) COVID-19 Screening Contact w/high risk pt: No Experienced COVID-19 symptoms?: No COVID-19 Testing performed HEARING AID DISPENSER: Yes COVID-19 Screening: Negative COVID-19 COVID-19 Testing Source: 01/2020 Patient History Past Medical History: see triage record Past Surgical History: none Pertinent Family History: none Immunizations: UTD Reviewed Nursing Documentation: PMH: Agreed; PSxH: Agreed Nursing Documentation-PMH Past Medical History: No Stated History Hx Cardiac Problems: No Hx Cancer: No Hx Gastrointestinal Problems: No Hx Neurological Problems: No Review of Systems All Other Systems: negative except mentioned in HPI Physical Exam Vital Signs Date Time Temp Pulse Resp B/P (MAP) Pulse Ox O2 Delivery O2 Flow Rate FiO2 04/11/20 14:43 99.3 105 20 115/76 (89) 95 Sp02 EP Interpretation: reviewed, normal General Appearance: no apparent distress, alert, GCS 15, non-toxic Head: normocephalic, atraumatic Eyes: bilateral eye normal inspection, bilateral eye PERRL ENT: hearing grossly normal, normal pharynx, no angioedema, normal voice Neck: full range of motion, supple/symm/no masses Respiratory: chest non-tender, lungs clear, normal breath sounds, no rhonchi, no wheezing, speaking full sentences Cardiovascular #1: regular rate, rhythm, no edema, no murmur Cardiovascular #2: 2+ radial (R), 2+ radial (L) Gastrointestinal: normal bowel sounds, non tender, soft, non-distended, no guarding, no rebound Genitourinary: no CVA tenderness Musculoskeletal: back normal, non-tender, swelling - Left index finger Neurologic: alert, motor strength/tone normal, oriented x3, sensory intact, responsive, speech normal Psychiatric: judgement/insight normal, memory normal, mood/affect normal, no suicidal/homicidal ideation Skin: other - cellulitis left index finger Lymphatic: no adenopathy Procedures Splinting Splinting : Consent: Verbal Location: left index finger Pre-Made Type: metal Pre-Proc Neuro Vasc Exam: normal Post-Proc Neuro Vasc Exam: normal Patient Tolerated: Well Complications: None Medical Decision Making PA Attestation All my diagnosis and treatment plans were reviewed ad discussed with my supervising physician Dr. Blanco Diagnostic Impression: Primary Impression: Cellulitis, finger Additional Impression: Allergic reaction caused by a drug ER Course 40-year-old male with no signal past medical history here complaining of pain and swelling left index finger x1 week. Patient reports that he accidentally cut underneath his left nail and nailbed a week ago with a side of the refrigerator however has been applying [place] juice over the area to deal with the pain and possible infection. Patient reports that today he started feeling a lot of pain when bending the PIP joint. Obvious swelling cellulitis noted minimal pus drainage. Patient also complains of numbness in the tip of the finger however denies any pain radiation, tingling. Patient is neurovascularly intact. Patient has full strength bilateral upper extremities. Has not taken medication for symptom relief. Also reports that he got a tattoo done on his neck a day ago between pruritic. After administration of the first dose of Keflex in the ED patient started feeling itchy in his throat and all over her skin. Patient did not want to anaphylactic shock. Denies any shortness of breath. Airway was patent. Patient reports that he did not know the allergy to Keflex. After administration of prednisone, Benadryl and Zofran patient felt better. Patient reports that he is feeling nauseated. Denies any fever chills, chest pain, shortness of breath, associated symptoms. Ddx considered but are not limited to : Cellulitis, , superficial infection, abscess, anaphylaxis, allergic reaction Vital signs: are WNL, pt. is afebrile H&PE are most consistent with: Cellulitis finger, allergic reaction to the medication possible combination of medication as well as recent tattoo ORDERS: Clindamycin, Motrin, prednisone, Benadryl ED INTERVENTIONS: Keflex, prednisone, Benadryl, proper dressing applied, finger splint DISCHARGE: At this time pt. is stable for d/c to home. Will provide printed patient care instructions, and any necessary prescriptions. Care plan and follow up instructions have been discussed with the patient prior to discharge. Advised patient to follow primary doctor, advised to stop taking clindamycin if any allergic reaction, worsening symptoms return to the emergency room. Other X-Ray Diagnostic Results Other X-Ray Diagnostic Results : X-Ray ordered: left hand # of Views/Limited Vs Complete: 3 View Indication: Pain EP Interpretation: Yes PA Xray: Interpretation reviewed, by supervising MD, and agrees with findings. Interpretation: no dislocation, no soft tissue swelling, no fractures Impression: No acute disease Electronically Signed by: Cira Marquez PA-C Last Vital Signs Date Time Temp Pulse Resp B/P (MAP) Pulse Ox O2 Delivery O2 Flow Rate FiO2 04/11/20 15:05 99.3 20 115/76 95 04/11/20 14:43 105 Disposition: HOME, SELF-CARE Condition: Stable Scripts Ibuprofen* (MOTRIN*) 600 Mg Tablet 600 MG ORAL Q8H PRN for FOR PAIN, #30 TAB 0 Refills Prov: Cira Noriega 04/11/20 Diphenhydramine HCl (Benadryl) 25 Mg Capsule 25 MG PO BID, #30 CAP Prov: Cira Noriega 04/11/20 Prednisone* (PREDNISONE*) 20 Mg Tablet 40 MG ORAL DAILY for 5 Days, #10 TAB Prov: Cira Noriega 04/11/20 Clindamycin Hcl* (CLINDAMYCIN HCL*) 150 Mg Capsule 300 MG ORAL FOUR TIMES A DAY for 7 Days, #28 CAP Prov: Cira Noriega 04/11/20 Referrals: [facility],REFERRING (PCP) Patient Instructions: Allergies, [id number], Cellulitis, [id number] Additional Instructions: Take medication as directed, follow-up primary care provider, if worsening symptoms return to the emergency room. If allergic reaction to the new antibiotic stop taking antibiotic and if any distress return to the emergency room. Cira Noriega Apr 11, 2020 15:49
[2020-04-11] MEDS ORDERED: IBUPROFEN600 M1 ORAL (15:50)
[2020-04-11] MEDS ORDERED: PREDNISONE20 MG ORAL (15:50)
[2020-04-11] MEDS ORDERED: BENADRYL25 M3 PO (15:50)
[2020-04-11] MEDS ORDERED: CLINDAMYCIN HC150 MG ORAL (15:50)
[2020-04-11 15:57] VITALS: BP 116/77
--- NOTE | 2020-04-11 15:57 | NUR ---
ER DISCHARGE NOTE: Patient is cleared to be discharged per ERPA, pt is aox4, on room air, with stable vital signs. pt was given dc and prescription instructions, pt was able to verbalize understanding, pt id band removed. pt is able to ambulate with steady gait. pt took all belongings.
--- NOTE | 2020-04-11 16:26 | Diagnostic Imaging Report ---
Indication: Pain status post trauma Technique: XRAY Hand Complete L Comparison: None FINDINGS/IMPRESSION: Soft tissue swelling of the second digit with irregularity suggesting a possible laceration. Correlation with physical exam recommended. No acute fracture or dislocation is identified. No radiopaque foreign body.
== END 2020-04-11 15:57 | disposition home or self-care (01) ==
LOC: EMR 14:50
DX: L03.012 Cellulitis of left finger (principal); T36.1X5A Adverse effect of cephalosporins and other beta-lactam antibiotics, initial encounter; Y92.9 Unspecified place or not applicable; Z88.8 Allergy status to other drugs, medicaments and biological substances
CPT/HCPCS: 73130; J7512; Z7502; 99283